=== PATIENT | male | born 1960 | race American Indian/Alaskan Native ===

== ENCOUNTER 2019-07-15 04:21 | Emergency (ER) | payer SELFPAY ==
[2019-07-15] MEDS ORDERED: ALBUTEROL 2.5 MG/3 ML NEBU IH ONE (04:34)
[2019-07-15] MEDS ORDERED: IPRATROPIUM 0.02% NEBU 2.5 ML IH ONE (04:34)
[2019-07-15] MEDS ORDERED: SODIUM CHLORIDE 0.9% 1000 ML 1,000 ML IV ONE (04:34)
--- NOTE | 2019-07-15 04:36 | Event Note ---
Date: 07/15/19 Medical screening examination: 59-year-old gentleman presenting with cough, mucus production, chest wall pain. Reported to nursing team recreational heroin use. EMS contacted for shortness of breath. Plan is to check basic laboratory studies, EKG, x-ray the chest, treat symptoms, reassess. The patient denied DVT and pulmonary embolism risk factors. Vital Signs 07/15/19 04:30 Temperature 97.8 F Pulse Rate 102 H Respiratory 24 Rate Blood Pressure 206/126 O2 Sat by Pulse 98 Oximetry
--- NOTE | 2019-07-15 05:03 | XRay Report ---
CHEST 1 VIEW INDICATION / CLINICAL INFORMATION: cough cp sob. COMPARISON: None available. FINDINGS: SUPPORT DEVICES: None. HEART / MEDIASTINUM: No significant abnormality. LUNGS / PLEURA: No significant pulmonary or pleural abnormality. No pneumothorax. ADDITIONAL FINDINGS: No significant additional findings. IMPRESSION: 1. No acute findings. Signer Name: Daiana Bojorquez MD Signed: 07/15/2019 4:59 AM Workstation Name: [id number]
[2019-07-15 05:11] LABS: Hematocrit 40.7 % (35.5-45.6); Hemoglobin 13.7 gm/dl (11.8-15.2); Mean Corpuscular HGB Conc 34 % (32-34); Mean Corpuscular Volume 88 fl (84-94); Platelet Count 252 K/mm3 (140-440); Red Blood Count 4.63 M/mm3 (3.65-5.03); Red Cell Distribution Width 14.4 % (13.2-15.2)
[2019-07-15 05:22] LABS: INR 0.98 (0.87-1.13)
[2019-07-15 05:45] LABS: Alanine Aminotransferase 16 units/L (7-56); Albumin 4.5 g/dL (3.9-5); BUN/Creatinine Ratio 13; Blood Urea Nitrogen 13 mg/dL (9-20); Calcium 9.3 mg/dL (8.4-10.2); Hemolysis Index 16
[2019-07-15] MEDS ORDERED: hydrALAZINE 20 MG/1 ML INJ IV ONE (05:47)
--- NOTE | 2019-07-15 07:13 | Emergency Department Report ---
ED General Adult HPI - General Chief complaint: Dyspnea/Respdistress Stated complaint: ANGEL/COUGH Time Seen by Provider: 07/15/19 07:00 Source: patient Mode of arrival: Stretcher Limitations: No Limitations - History of Present Illness Initial comments: She presents to the emergency department with a chief complaint of a cough shortness breath for the last couple of days. Patient has a history of COPD but does smoke cigarettes. Patient denies any chest pain, fever, normal pain. - Related Data Previous Rx's Medication Instructions Recorded Last Taken Type ALBUTEROL Inhaler (OR & NICU) 2 puff IH Q4HR PRN #1 inhalation 07/15/19 Unknown Rx [ProAir HFA Inhaler] Azithromycin [Zithromax Z-CHITO] 250 mg PO DAILY #6 tablet 07/15/19 Unknown Rx Benzonatate [Tessalon Perles] 100 mg PO Q8HR PRN #20 capsule 07/15/19 Unknown Rx guaiFENesin/CODEINE [Robitussin AC] 5 ml PO Q12HR PRN #180 oral.liqd 07/15/19 Unknown Rx predniSONE [Deltasone] 20 mg PO DAILY #15 tablet 07/15/19 Unknown Rx Allergies Allergy/AdvReac Type Severity Reaction Status Date / Time No Known Allergies Allergy Unverified 07/15/19 04:33 ED Review of Systems ROS: Stated complaint: ANGEL/COUGH Other details as noted in HPI Constitutional: denies: chills, fever Eyes: denies: eye pain, eye discharge, vision change ENT: denies: ear pain, throat pain Respiratory: cough, shortness of breath. denies: wheezing Cardiovascular: denies: chest pain, palpitations Endocrine: no symptoms reported Gastrointestinal: denies: abdominal pain, nausea, diarrhea Genitourinary: denies: urgency, dysuria Musculoskeletal: denies: back pain, joint swelling, arthralgia Skin: denies: rash, lesions Neurological: denies: headache, weakness, paresthesias Psychiatric: denies: anxiety, depression Hematological/Lymphatic: denies: easy bleeding, easy bruising ED Past Medical Hx - Past Medical History Previous Medical History?: No - Surgical History Past Surgical History?: No - Social History Smoking Status: Current Every Day Smoker Substance Use Type: Alcohol, Heroin - Medications Home Medications: Home Medications Medication Instructions Recorded Confirmed Last Taken Type ALBUTEROL Inhaler (OR & NICU) 2 puff IH Q4HR PRN #1 inhalation 07/15/19 Unknown Rx [ProAir HFA Inhaler] Azithromycin [Zithromax Z-CHITO] 250 mg PO DAILY #6 tablet 07/15/19 Unknown Rx Benzonatate [Tessalon Perles] 100 mg PO Q8HR PRN #20 capsule 07/15/19 Unknown Rx guaiFENesin/CODEINE [Robitussin AC] 5 ml PO Q12HR PRN #180 oral.liqd 07/15/19 Unknown Rx predniSONE [Deltasone] 20 mg PO DAILY #15 tablet 07/15/19 Unknown Rx ED Physical Exam - General Limitations: No Limitations General appearance: alert, in no apparent distress - Head Head exam: Present: atraumatic, normocephalic - Eye Eye exam: Present: normal appearance, PERRL, EOMI - ENT ENT exam: Present: mucous membranes moist - Neck Neck exam: Present: normal inspection - Respiratory Respiratory exam: Present: normal lung sounds bilaterally, wheezes (mild expiratory wheezing). Absent: respiratory distress - Cardiovascular Cardiovascular Exam: Present: regular rate, normal rhythm. Absent: systolic murmur, diastolic murmur, rubs, gallop - GI/Abdominal GI/Abdominal exam: Present: soft, normal bowel sounds. Absent: distended, tenderness - Rectal Rectal exam: Present: deferred - Extremities Exam Extremities exam: Present: normal inspection - Back Exam Back exam: Present: normal inspection - Neurological Exam Neurological exam: Present: alert, oriented X3, CN II-XII intact. Absent: motor sensory deficit - Psychiatric Psychiatric exam: Present: normal affect, normal mood - Skin Skin exam: Present: warm, dry, intact, normal color. Absent: rash ED Course Vital Signs 07/15/19 07/15/19 07/15/19 04:26 04:30 04:45 Temperature 97.8 F Pulse Rate 92 H 91 H 95 H Pulse Rate [ Bilateral] Respiratory 13 18 18 Rate Respiratory Rate [Bilateral ] Blood Pressure 206/126 194/124 O2 Sat by Pulse 96 95 Oximetry 07/15/19 07/15/19 07/15/19 04:52 05:00 05:15 Temperature Pulse Rate 80 79 Pulse Rate [ 90 Bilateral] Respiratory 16 15 Rate Respiratory 20 Rate [Bilateral ] Blood Pressure 154/105 149/97 O2 Sat by Pulse 98 98 Oximetry 07/15/19 07/15/19 07/15/19 05:30 05:45 06:00 Temperature Pulse Rate 90 96 H 75 Pulse Rate [ Bilateral] Respiratory 17 20 17 Rate Respiratory Rate [Bilateral ] Blood Pressure 151/91 155/95 153/87 O2 Sat by Pulse 99 98 100 Oximetry 07/15/19 07/15/19 07/15/19 06:15 06:30 06:45 Temperature Pulse Rate 66 70 88 Pulse Rate [ Bilateral] Respiratory 16 16 13 Rate Respiratory Rate [Bilateral ] Blood Pressure 141/87 147/85 160/104 O2 Sat by Pulse 100 100 95 Oximetry 07/15/19 07/15/19 07:00 07:05 Temperature Pulse Rate 83 83 Pulse Rate [ Bilateral] Respiratory 19 Rate Respiratory Rate [Bilateral ] Blood Pressure 155/100 155/100 O2 Sat by Pulse 92 Oximetry ED Medical Decision Making - Lab Data Result diagrams: 07/15/19 04:47 07/15/19 04:47 Lab Results 07/15/19 07/15/19 07/15/19 Range/Units 04:47 04:47 04:47 WBC 5.9 (4.5-11.0) K/mm3 RBC 4.63 (3.65-5.03) M/mm3 Hgb 13.7 (11.8-15.2) gm/dl Hct 40.7 (35.5-45.6) % MCV 88 (84-94) fl MCH 30 (28-32) pg MCHC 34 (32-34) % RDW 14.4 (13.2-15.2) % Plt Count 252 (140-440) K/mm3 PT 12.9 (12.2-14.9) Sec. INR 0.98 (0.87-1.13) Sodium 136 L (137-145) mmol/L Potassium 4.2 (3.6-5.0) mmol/L Chloride 98.6 (98-107) mmol/L Carbon Dioxide 22 (22-30) mmol/L Anion Gap 20 mmol/L BUN 13 (9-20) mg/dL Creatinine 1.0 (0.8-1.5) mg/dL Estimated GFR > 60 ml/min BUN/Creatinine Ratio 13 % Glucose 109 H (75-100) mg/dL Calcium 9.3 (8.4-10.2) mg/dL Magnesium 1.90 (1.7-2.3) mg/dL Total Bilirubin 0.60 (0.1-1.2) mg/dL AST 17 (5-40) units/L ALT 16 (7-56) units/L Alkaline Phosphatase 62 (35-129) units/L Total Creatine Kinase 111 (55-170) units/L Troponin T < 0.010 (0.00-0.029) ng/mL Total Protein 7.9 (6.3-8.2) g/dL Albumin 4.5 (3.9-5) g/dL Albumin/Globulin Ratio 1.3 % Salicylates (2.8-20.0) mg/dL Acetaminophen (10.0-30.0) ug/mL Plasma/Serum Alcohol (0-0.07) % 07/15/19 07/15/19 07/15/19 Range/Units 04:47 04:47 04:47 WBC (4.5-11.0) K/mm3 RBC (3.65-5.03) M/mm3 Hgb (11.8-15.2) gm/dl Hct (35.5-45.6) % MCV (84-94) fl MCH (28-32) pg MCHC (32-34) % RDW (13.2-15.2) % Plt Count (140-440) K/mm3 PT (12.2-14.9) Sec. INR (0.87-1.13) Sodium (137-145) mmol/L Potassium (3.6-5.0) mmol/L Chloride (98-107) mmol/L Carbon Dioxide (22-30) mmol/L Anion Gap mmol/L BUN (9-20) mg/dL Creatinine (0.8-1.5) mg/dL Estimated GFR ml/min BUN/Creatinine Ratio % Glucose (75-100) mg/dL Calcium (8.4-10.2) mg/dL Magnesium (1.7-2.3) mg/dL Total Bilirubin (0.1-1.2) mg/dL AST (5-40) units/L ALT (7-56) units/L Alkaline Phosphatase (35-129) units/L Total Creatine Kinase (55-170) units/L Troponin T (0.00-0.029) ng/mL Total Protein (6.3-8.2) g/dL Albumin (3.9-5) g/dL Albumin/Globulin Ratio % Salicylates < 0.3 L (2.8-20.0) mg/dL Acetaminophen < 5.0 L (10.0-30.0) ug/mL Plasma/Serum Alcohol < 0.01 (0-0.07) % - Radiology Data Radiology results: report reviewed - Medical Decision Making The patient states his symptoms improved after the breathing treatment Critical care attestation.: If time is entered above; I have spent that time in minutes in the direct care of this critically ill patient, excluding procedure time. ED Disposition Clinical Impression: Bronchitis Disposition: DC- TO HOME OR SELFCARE Is pt being admited?: No Does the pt Need Aspirin: No Condition: Stable Instructions: Acute Bronchitis (ED) Additional Instructions: return if worse Referrals: PRIMARY CARE, [Primary Care Provider] - 3-5 Days [facility] [Provider Group] - 3-5 Days [facility] [Provider Group] - 3-5 Days Time of Disposition: 07:09
[2019-07-15 07:19] VITALS: BP 162/96
== END 2019-07-15 07:22 | disposition home or self-care (01) ==
LOC: ED 04:21
DX: J40 Bronchitis, not specified as acute or chronic (principal); F17.200 Nicotine dependence, unspecified, uncomplicated; Z79.899 Other long term (current) drug therapy
CPT/HCPCS: 36415; 71045; 80053; 82550; 83735; 84484; 85027; 85610; 94640; 96360; 99285; J7030; 80320; 94644; G0480

== ENCOUNTER 2019-08-27 03:59 | Emergency (ER) | payer SELFPAY ==
[2019-08-27] MEDS ORDERED: IPRATROPIUM/ALBUTEROL SULFATE 3 ML AMPUL.NEB IH ONE (06:50)
--- NOTE | 2019-08-27 08:30 | XRay Report ---
CHEST 2 VIEWS INDICATION: shortness of breath, cough. COMPARISON: 07/15/2019 FINDINGS: Support devices: None. Heart: Within normal limits. Lungs/pleura: No acute air space or interstitial disease. No pneumothorax. The lungs appear hyperinf lated. Additional findings: None. IMPRESSION: No acute findings. Hyperinflated lungs suggesting underlying emphysematous changes. Signer Name: Matt Coombs Jr, MD Signed: 08/27/2019 8:26 AM Workstation Name: [id number]
--- NOTE | 2019-08-27 09:20 | Emergency Department Report ---
ED Shortness of Breath HPI - General Chief Complaint: Dyspnea/Respdistress Stated Complaint: ANGEL Time Seen by Provider: 08/27/19 08:57 Source: patient Mode of arrival: Ambulatory Limitations: No Limitations - History of Present Illness Initial Comments: Mr. Lester is a 59 yo male with hx of tobacco abuse who presents with cough, sputum production and shortness of breath. Seen last month for similar symptoms. Was uanble to fill prescriptoins provided. Does not have a primary physician, Symptoms improved with bronchodilator nebulizer treatment. MD Complaint: shortness of breath, cough -: Gradual, days(s) (2) Severity: moderate Consistency: now resolved Improves With: bronchodilators Known History Of: other (40 pack year tobacco hx) - Related Data Previous Rx's Medication Instructions Recorded Last Taken Type ALBUTEROL Inhaler (OR & NICU) 2 puff IH Q4HR PRN #1 inhalation 07/15/19 Unknown Rx [ProAir HFA Inhaler] Azithromycin [Zithromax Z-CHITO] 250 mg PO DAILY #6 tablet 07/15/19 Unknown Rx Benzonatate [Tessalon Perles] 100 mg PO Q8HR PRN #20 capsule 07/15/19 Unknown Rx guaiFENesin/CODEINE [Robitussin AC] 5 ml PO Q12HR PRN #180 oral.liqd 07/15/19 Unknown Rx predniSONE [Deltasone] 20 mg PO DAILY #15 tablet 07/15/19 Unknown Rx ALBUTEROL Inhaler (OR & NICU) 2 puff IH QID PRN #8.5 gram 08/27/19 Unknown Rx [ProAir HFA Inhaler] DOXYCYCLINE Hyclate [Vibramycin 100 mg PO BID 7 Days #14 capsule 08/27/19 Unknown Rx CAP] predniSONE [Deltasone] 3 tab PO QDAY 3 Days #9 tab 08/27/19 Unknown Rx Allergies Allergy/AdvReac Type Severity Reaction Status Date / Time No Known Allergies Allergy Unverified 07/15/19 04:33 ED Review of Systems ROS: Stated complaint: ANGEL Other details as noted in HPI Comment: All other systems reviewed and negative Constitutional: denies: fever, malaise ENT: congestion Respiratory: cough, shortness of breath, wheezing Cardiovascular: denies: chest pain ED Past Medical Hx - Past Medical History Previous Medical History?: Yes Hx COPD: Yes - Surgical History Past Surgical History?: No Additional Surgical History: right breast tissue removed 1990 - Social History Smoking Status: Current Every Day Smoker Substance Use Type: None - Medications Home Medications: Home Medications Medication Instructions Recorded Confirmed Last Taken Type ALBUTEROL Inhaler (OR & NICU) 2 puff IH Q4HR PRN #1 inhalation 07/15/19 Unknown Rx [ProAir HFA Inhaler] Azithromycin [Zithromax Z-CHITO] 250 mg PO DAILY #6 tablet 07/15/19 Unknown Rx Benzonatate [Tessalon Perles] 100 mg PO Q8HR PRN #20 capsule 07/15/19 Unknown Rx guaiFENesin/CODEINE [Robitussin AC] 5 ml PO Q12HR PRN #180 oral.liqd 07/15/19 Unknown Rx predniSONE [Deltasone] 20 mg PO DAILY #15 tablet 07/15/19 Unknown Rx ALBUTEROL Inhaler (OR & NICU) 2 puff IH QID PRN #8.5 gram 08/27/19 Unknown Rx [ProAir HFA Inhaler] DOXYCYCLINE Hyclate [Vibramycin 100 mg PO BID 7 Days #14 capsule 08/27/19 Unknown Rx CAP] predniSONE [Deltasone] 3 tab PO QDAY 3 Days #9 tab 08/27/19 Unknown Rx ED Physical Exam - General Limitations: No Limitations General appearance: alert, in no apparent distress, other (speaking full word sentences with infrequent cough, ambulates without difficulty) - Head Head exam: Present: atraumatic, normocephalic - Eye Eye exam: Present: normal appearance - ENT ENT exam: Present: mucous membranes moist - Neck Neck exam: Present: normal inspection, full ROM - Respiratory Respiratory exam: Present: normal lung sounds bilaterally. Absent: respiratory distress, wheezes, rales, rhonchi, chest wall tenderness, accessory muscle use, decreased breath sounds, prolonged expiratory - Cardiovascular Cardiovascular Exam: Present: regular rate, normal rhythm, normal heart sounds. Absent: systolic murmur, diastolic murmur, rubs, gallop - GI/Abdominal GI/Abdominal exam: Present: soft, normal bowel sounds. Absent: distended, tenderness, guarding, rebound - Rectal Rectal exam: Present: deferred - Extremities Exam Extremities exam: Present: normal inspection - Neurological Exam Neurological exam: Present: alert, oriented X3 - Psychiatric Psychiatric exam: Present: normal affect, normal mood - Skin Skin exam: Present: warm, dry, intact, normal color. Absent: rash ED Course Vital Signs 08/27/19 08/27/19 04:31 05:02 Temperature 98.4 F 98.4 F Pulse Rate 89 88 Respiratory 18 18 Rate Blood Pressure 134/86 134/86 O2 Sat by Pulse 94 94 Oximetry ED Medical Decision Making - Radiology Data Radiology results: report reviewed chest radiograph reveals emphysematous changes with hyperinflation according to radiology report - Medical Decision Making with hx of tobacco abuse and CXR findings I suspect COPD as a new diagnosis for patient although it appears to have been previously documentation smoking cessation recommended Rx: albuterol mdi, doxycycline, prednisone Critical care attestation.: If time is entered above; I have spent that time in minutes in the direct care of this critically ill patient, excluding procedure time. ED Disposition Clinical Impression: COPD (chronic obstructive pulmonary disease), Acute bronchitis with COPD Disposition: TO HOME OR SELFCARE Is pt being admited?: No Does the pt Need Aspirin: No Condition: Stable Additional Instructions: Your x-ray shows lung damage from smoking. Please stop smoking immediately. Prescriptions: predniSONE [Deltasone] 3 tab PO QDAY 3 Days #9 tab ALBUTEROL Inhaler (OR & NICU) [ProAir HFA Inhaler] 2 puff IH QID PRN #8.5 gram PRN Reason: Shortness Of Breath DOXYCYCLINE Hyclate [Vibramycin CAP] 100 mg PO BID 7 Days #14 capsule Referrals: ANDRÉS HUSSEIN MD [Staff Physician] - 3-5 Days Forms: Work/School Release Form(ED)
[2019-08-27] MEDS ORDERED: predniSONE 20 MG TAB PO ONE (09:23)
[2019-08-27] MEDS ORDERED: DOXYCYCLINE 100 MG CAPSULE PO ONE (09:23)
[2019-08-27 09:41] VITALS: BP 128/78
== END 2019-08-27 09:40 | disposition home or self-care (01) ==
LOC: ED 03:59
DX: J44.0 Chronic obstructive pulmonary disease with (acute) lower respiratory infection (principal); F17.200 Nicotine dependence, unspecified, uncomplicated
CPT/HCPCS: 71046; 94640; 99284; J7512; 94644

== ENCOUNTER 2019-10-13 14:41 | Emergency (ER) | payer SELFPAY ==
[2019-10-13] MEDS ORDERED: IPRATROPIUM/ALBUTEROL SULFATE 3 ML AMPUL.NEB IH ONE (17:25)
[2019-10-13] MEDS ORDERED: dexAMETHasone 20 MG/5 ML VIAL IM ONE (17:25)
--- NOTE | 2019-10-13 17:25 | Event Note ---
ED Screening Note ED Screening Note: hx of chronic bronchitis began feeling SOB that began earlier today wheezing ran out of his albuterol inhaler + dry cough no fever no rhinorrhea no n/v/d no other pmhx no allergies to meds +smoker, 1/2 ppd +marijuana mild expiratory wheeze no respiratory distress This initial assessment/diagnostic orders/clinical plan/treatment(s) is/are subject to change based on patients health status, clinical progression and re- assessment by fellow clinical providers in the ED. Further treatment and workup at subsequent clinical providers discretion. Patient/guardian urged not to elope from the ED as their condition may be serious if not clinically assessed and managed. Initial orders include: yamileo neb
--- NOTE | 2019-10-13 18:36 | Emergency Department Report ---
ED Shortness of Breath HPI - General Chief Complaint: Dyspnea/Respdistress Stated Complaint: SOB Time Seen by Provider: 10/13/19 17:21 Source: patient Mode of arrival: Ambulatory Limitations: No Limitations - History of Present Illness Initial Comments: hx of chronic bronchitis began feeling SOB that began earlier today has associated wheezing ran out of his albuterol inhaler (+) dry cough no fever no rhinorrhea no n/v/d no cp no productive cough no other pmhx no allergies to meds (+)smoker, 1/2 ppd +marijuana use - Related Data Previous Rx's Medication Instructions Recorded Last Taken Type Albuterol INH(or & Nicu Only) 2 puff IH Q4HR PRN #1 inhalation 07/15/19 Unknown Rx [ProAir HFA Inhaler] Azithromycin [Zithromax Z-CHITO] 250 mg PO DAILY #6 tablet 07/15/19 Unknown Rx Benzonatate [Tessalon Perles] 100 mg PO Q8HR PRN #20 capsule 07/15/19 Unknown Rx guaiFENesin/CODEINE [Robitussin AC] 5 ml PO Q12HR PRN #180 oral.liqd 07/15/19 Unknown Rx predniSONE [Deltasone] 20 mg PO DAILY #15 tablet 07/15/19 Unknown Rx Albuterol INH(or & Nicu Only) 2 puff IH QID PRN #8.5 gram 08/27/19 Unknown Rx [ProAir HFA Inhaler] DOXYCYCLINE Hyclate [Vibramycin 100 mg PO BID 7 Days #14 capsule 08/27/19 Unknown Rx CAP] predniSONE [Deltasone] 3 tab PO QDAY 3 Days #9 tab 08/27/19 Unknown Rx Albuterol INH(or & Nicu Only) 2 puff IH QID PRN #1 inhalation 10/13/19 Unknown Rx [ProAir HFA Inhaler] Prednisone [predniSONE 10 mg 10 mg PO .TAPER #1 tab.ds.pk 10/13/19 Unknown Rx (6-Day Pack, 21 Tabs)] Allergies Allergy/AdvReac Type Severity Reaction Status Date / Time No Known Allergies Allergy Unverified 07/15/19 04:33 ED Review of Systems ROS: Stated complaint: SOB Other details as noted in HPI Comment: All other systems reviewed and negative ED Past Medical Hx - Past Medical History Previous Medical History?: Yes Hx COPD: Yes - Surgical History Past Surgical History?: Yes Additional Surgical History: right breast tissue removed 1990 - Social History Smoking Status: Current Every Day Smoker Substance Use Type: Alcohol, Heroin, Marijuana - Medications Home Medications: Home Medications Medication Instructions Recorded Confirmed Last Taken Type Albuterol INH(or & Nicu Only) 2 puff IH Q4HR PRN #1 inhalation 07/15/19 Unknown Rx [ProAir HFA Inhaler] Azithromycin [Zithromax Z-CHITO] 250 mg PO DAILY #6 tablet 07/15/19 Unknown Rx Benzonatate [Tessalon Perles] 100 mg PO Q8HR PRN #20 capsule 07/15/19 Unknown Rx guaiFENesin/CODEINE [Robitussin AC] 5 ml PO Q12HR PRN #180 oral.liqd 07/15/19 Unknown Rx predniSONE [Deltasone] 20 mg PO DAILY #15 tablet 07/15/19 Unknown Rx Albuterol INH(or & Nicu Only) 2 puff IH QID PRN #8.5 gram 08/27/19 Unknown Rx [ProAir HFA Inhaler] DOXYCYCLINE Hyclate [Vibramycin 100 mg PO BID 7 Days #14 capsule 08/27/19 Unknown Rx CAP] predniSONE [Deltasone] 3 tab PO QDAY 3 Days #9 tab 08/27/19 Unknown Rx Albuterol INH(or & Nicu Only) 2 puff IH QID PRN #1 inhalation 10/13/19 Unknown Rx [ProAir HFA Inhaler] Prednisone [predniSONE 10 mg 10 mg PO .TAPER #1 tab.ds.pk 10/13/19 Unknown Rx (6-Day Pack, 21 Tabs)] ED Physical Exam - General Limitations: No Limitations General appearance: alert, in no apparent distress - Head Head exam: Present: atraumatic, normocephalic - Eye Eye exam: Present: normal appearance - ENT ENT exam: Present: mucous membranes moist - Respiratory Respiratory exam: Present: wheezes (mild expiratory). Absent: respiratory distress, rales, rhonchi, stridor, chest wall tenderness, accessory muscle use, decreased breath sounds, prolonged expiratory - Cardiovascular Cardiovascular Exam: Present: regular rate, normal rhythm, normal heart sounds. Absent: systolic murmur, diastolic murmur, rubs, gallop - Neurological Exam Neurological exam: Present: alert, oriented X3 - Psychiatric Psychiatric exam: Present: normal affect, normal mood - Skin Skin exam: Present: warm, dry, intact ED Course Vital Signs 10/13/19 10/13/19 17:22 18:54 Temperature 98.3 F Pulse Rate 92 H 86 Respiratory 18 16 Rate Blood Pressure 143/94 Blood Pressure 140/90 [Left] O2 Sat by Pulse 95 97 Oximetry - Reevaluation(s) Reevaluation #1: 10/13/19 18:36 s/p neb tx, breath sounds are completely clear, good air movement ED Medical Decision Making - Medical Decision Making hx of chronic bronchitis began feeling SOB that began earlier today has associated wheezing ran out of his albuterol inhaler (+) dry cough no fever no rhinorrhea no n/v/d no cp no productive cough no other pmhx no allergies to meds (+)smoker, 1/2 ppd +marijuana use vss on exam: mild expiratory, no respiratory distress, no accessory muscle use pt has no fever, no productive cough, no rhochi or rales, no need for emergent imaging at this time, low concern for pna or acute bronchitis Patient given DuoNeb and steroid injection, breath sounds significantly improved, wheezing has resolved discussed smoking cessation. advised pt to please take medication as prescribed. stop smoking. follow up with a primary care doctor in the next 2-3 days. return to the emergency room for any new or worsening symptoms. Critical care attestation.: If time is entered above; I have spent that time in minutes in the direct care of this critically ill patient, excluding procedure time. ED Disposition Clinical Impression: Tobacco abuse COPD (chronic obstructive pulmonary disease) Qualifiers: COPD type: unspecified COPD Qualified Code(s): J44.9 - Chronic obstructive pulmonary disease, unspecified Disposition: DC-01 TO HOME OR SELFCARE Is pt being admited?: No Does the pt Need Aspirin: No Condition: Stable Instructions: How to Stop Smoking (ED), Chronic Obstructive Pulmonary Disease ( ED) Additional Instructions: please take medication as prescribed. stop smoking. follow up with a primary care doctor in the next 2-3 days. return to the emergency room for any new or worsening symptoms. Prescriptions: Prednisone [predniSONE 10 mg (6-Day Pack, 21 Tabs)] 10 mg PO .TAPER #1 tab.ds.pk Albuterol INH(or & Nicu Only) [ProAir HFA Inhaler] 2 puff IH QID PRN #1 inhalation PRN Reason: Shortness Of Breath Referrals: ANDRÉS HUSSEIN MD [Staff Physician] - 2-3 Days [facility] [Outside] - 2-3 Days [facility] [Outside] - 2-3 Days Time of Disposition: 18:37 Print Language: RUSSIAN
[2019-10-13 19:03] VITALS: BP 140/90
== END 2019-10-13 18:54 | disposition home or self-care (01) ==
LOC: ED 14:41
DX: J44.9 Chronic obstructive pulmonary disease, unspecified (principal); F17.200 Nicotine dependence, unspecified, uncomplicated; F12.10 Cannabis abuse, uncomplicated; Z79.899 Other long term (current) drug therapy
CPT/HCPCS: 93005; 93010; 94640; 96372; 99282; J1100

== ENCOUNTER 2020-09-02 11:24 | Emergency (ER) | payer SELFPAY ==
[2020-09-02 11:32] VITALS: BP 126/92
== END 2020-09-02 11:58 | disposition left against medical advice (07) ==
LOC: ED 11:24
DX: R11.2 Nausea with vomiting, unspecified (principal); Z53.21 Procedure and treatment not carried out due to patient leaving prior to being seen by health care provider

== ENCOUNTER 2020-12-10 21:20 | Emergency (ER) | payer SELFPAY ==
[2020-12-10] MEDS ORDERED: predniSONE 20 MG TAB PO ONE (22:49)
[2020-12-10] MEDS ORDERED: IBUPROFEN 800 MG TAB PO ONE (22:49)
[2020-12-10] MEDS ORDERED: IPRATROPIUM/ALBUTEROL SULFATE 3 ML AMPUL.NEB IH ONE (22:59)
[2020-12-10] MEDS ORDERED: IPRATROPIUM/ALBUTEROL SULFATE 3 ML AMPUL.NEB IH STA (22:59)
--- NOTE | 2020-12-10 23:09 | Emergency Department Report ---
ED General Adult HPI - General Chief complaint: Upper Respiratory Infection Stated complaint: ANGEL/COUGHING BLOOD Time Seen by Provider: 12/10/20 22:33 Source: patient Mode of arrival: Ambulatory Limitations: No Limitations - History of Present Illness Initial comments: Patient is a 60-year-old -Beninese male with history of COPD who presents with shortness of breath cough productive yellow thick with sinus pain and pressure for the past week. Patient states he is out of prednisone and albuterol. Symptoms are rated at 4/10 with some chest pressure. Patient also endorses history of hypertension not sure what medication he is prescribed for treatment of same. States he takes it daily however did not take it today. Patient states symptoms are exacerbated by activity and environmental exposure. Symptoms are relieved by nothing tried. Patient denies suspicious contact there is been no recent travel. Patient has not had Covid vaccines. pt denies fever or chills. Severity scale (0 -10): 3 - Related Data Previous Rx's Medication Instructions Recorded Last Taken Type Albuterol Mdi (or & Nicu Only) 2 puff IH Q4HR PRN #1 inhalation 07/15/19 Unknown Rx [ProAir HFA Inhaler] Azithromycin [Zithromax Z-CHITO] 250 mg PO DAILY #6 tablet 07/15/19 Unknown Rx Benzonatate [Tessalon Perles] 100 mg PO Q8HR PRN #20 capsule 07/15/19 Unknown Rx guaiFENesin/CODEINE [Robitussin AC] 5 ml PO Q12HR PRN #180 oral.liqd 07/15/19 Unknown Rx predniSONE [Deltasone] 20 mg PO DAILY #15 tablet 07/15/19 Unknown Rx Albuterol Mdi (or & Nicu Only) 2 puff IH QID PRN #8.5 gram 08/27/19 Unknown Rx [ProAir HFA Inhaler] DOXYCYCLINE Hyclate [Vibramycin 100 mg PO BID 7 Days #14 capsule 08/27/19 Unknown Rx CAP] predniSONE [Deltasone] 3 tab PO QDAY 3 Days #9 tab 08/27/19 Unknown Rx Albuterol Mdi (or & Nicu Only) 2 puff IH QID PRN #1 inhalation 10/13/19 Unknown Rx [ProAir HFA Inhaler] Prednisone [predniSONE 10 mg 10 mg PO .TAPER #1 tab.ds.pk 10/13/19 Unknown Rx (6-Day Pack, 21 Tabs)] Albuterol Mdi (or & Nicu Only) 2 puff IH QID PRN #8.5 gram 12/11/20 Unknown Rx [ProAir HFA Inhaler] Azithromycin 500 mg PO DAILY 5 Days #5 tablet 12/11/20 Unknown Rx Codeine Phosphate/Guaifenesin 5 ml PO Q6H PRN #120 ml 12/11/20 Unknown Rx [Guaifenesin-Codeine Syrup] predniSONE [Deltasone] 40 mg PO QDAY 5 Days #10 tab 12/11/20 Unknown Rx Allergies Allergy/AdvReac Type Severity Reaction Status Date / Time No Known Allergies Allergy Verified 09/02/20 11:26 ED Review of Systems ROS: Stated complaint: ANGEL/COUGHING BLOOD Other details as noted in HPI Constitutional: denies: chills, fever Eyes: denies: eye pain, eye discharge, vision change ENT: throat pain, congestion Respiratory: cough, shortness of breath, wheezing Cardiovascular: chest pain (chest pressure ). denies: palpitations Endocrine: no symptoms reported Gastrointestinal: denies: abdominal pain, nausea, vomiting, diarrhea Genitourinary: denies: urgency, dysuria Musculoskeletal: denies: back pain, joint swelling, arthralgia Skin: denies: rash, lesions Neurological: denies: headache, weakness, numbness, paresthesias, confusion, vertigo Psychiatric: denies: anxiety, depression Hematological/Lymphatic: denies: easy bleeding, easy bruising ED Past Medical Hx - Past Medical History Previous Medical History?: Yes Hx COPD: Yes Additional medical history: Bronchitis - Surgical History Past Surgical History?: Yes Additional Surgical History: right breast tissue removed 1990 - Social History Smoking Status: Unknown if ever smoked Substance Use Type: Methamphetamines - Medications Home Medications: Home Medications Medication Instructions Recorded Confirmed Last Taken Type Albuterol Mdi (or & Nicu Only) 2 puff IH Q4HR PRN #1 inhalation 07/15/19 Unknown Rx [ProAir HFA Inhaler] Azithromycin [Zithromax Z-CHITO] 250 mg PO DAILY #6 tablet 07/15/19 Unknown Rx Benzonatate [Tessalon Perles] 100 mg PO Q8HR PRN #20 capsule 07/15/19 Unknown Rx guaiFENesin/CODEINE [Robitussin AC] 5 ml PO Q12HR PRN #180 oral.liqd 07/15/19 Unknown Rx predniSONE [Deltasone] 20 mg PO DAILY #15 tablet 07/15/19 Unknown Rx Albuterol Mdi (or & Nicu Only) 2 puff IH QID PRN #8.5 gram 08/27/19 Unknown Rx [ProAir HFA Inhaler] DOXYCYCLINE Hyclate [Vibramycin 100 mg PO BID 7 Days #14 capsule 08/27/19 Unknown Rx CAP] predniSONE [Deltasone] 3 tab PO QDAY 3 Days #9 tab 08/27/19 Unknown Rx Albuterol Mdi (or & Nicu Only) 2 puff IH QID PRN #1 inhalation 10/13/19 Unknown Rx [ProAir HFA Inhaler] Prednisone [predniSONE 10 mg 10 mg PO .TAPER #1 tab.ds.pk 10/13/19 Unknown Rx (6-Day Pack, 21 Tabs)] Albuterol Mdi (or & Nicu Only) 2 puff IH QID PRN #8.5 gram 12/11/20 Unknown Rx [ProAir HFA Inhaler] Azithromycin 500 mg PO DAILY 5 Days #5 tablet 12/11/20 Unknown Rx Codeine Phosphate/Guaifenesin 5 ml PO Q6H PRN #120 ml 12/11/20 Unknown Rx [Guaifenesin-Codeine Syrup] predniSONE [Deltasone] 40 mg PO QDAY 5 Days #10 tab 12/11/20 Unknown Rx ED Physical Exam - General Limitations: No Limitations General appearance: alert, in no apparent distress - Head Head exam: Present: atraumatic, normocephalic - Eye Eye exam: Present: normal appearance, EOMI Pupils: Present: normal accommodation - ENT ENT exam: Present: mucous membranes moist - Neck Neck exam: Present: normal inspection, full ROM. Absent: tenderness - Respiratory Respiratory exam: Present: wheezes (exp wheezing bilat upper anterior lobes). Absent: rales, rhonchi, stridor, accessory muscle use, prolonged expiratory - Cardiovascular Cardiovascular Exam: Present: regular rate, normal rhythm, normal heart sounds. Absent: systolic murmur, diastolic murmur, rubs, gallop - GI/Abdominal GI/Abdominal exam: Present: soft, normal bowel sounds. Absent: distended, tenderness - Rectal Rectal exam: Present: deferred - Extremities Exam Extremities exam: Present: normal inspection, full ROM, normal capillary refill. Absent: tenderness, pedal edema - Back Exam Back exam: Present: normal inspection, full ROM. Absent: tenderness, CVA tenderness (R), CVA tenderness (L) - Neurological Exam Neurological exam: Present: alert, oriented X3, CN II-XII intact, normal gait - Psychiatric Psychiatric exam: Present: normal affect, normal mood - Skin Skin exam: Present: warm, dry, intact, normal color. Absent: rash ED Course Vital Signs 12/10/20 12/11/20 22:16 00:17 Temperature 97.5 F L Pulse Rate 65 64 Respiratory 20 Rate Blood Pressure 188/102 Blood Pressure 166/109 [Right] O2 Sat by Pulse 95 Oximetry ED Medical Decision Making - Lab Data Result diagrams: 12/10/20 23:09 12/10/20 23:09 - Radiology Data Radiology results: report reviewed, image reviewed Ordering Physician: NICOLAS LUZ NP Date of Service: 12/10/20 Procedure(s): XR chest 1V ap Accession Number(s): [id number] cc: NICOLAS LUZ NP Fluoro Time In Minutes: CHEST 1 VIEW 12/10/2020 10:25 PM INDICATION / CLINICAL INFORMATION: chest pain. COMPARISON: 08/27/2019 FINDINGS: SUPPORT DEVICES: None. HEART / MEDIASTINUM: No significant abnormality. LUNGS / PLEURA: No significant pulmonary or pleural abnormality. No pneumothorax. ADDITIONAL FINDINGS: No significant additional findings. IMPRESSION: 1. No acute findings. Signer Name: Peng Wakefield MD Signed: 12/10/2020 11:36 PM Workstation Name: [id number] Transcribed By: SS Dictated By: Peng Wakefield MD Electronically Authenticated By: Peng Wakefield MD Signed Date/Time: 12/10/202335 DD/ 35 TD/TT: - Medical Decision Making Chest x-ray no infiltrates no opacities. Symptoms are improved with medication given in ED. Patient is alert oriented x3. Patient has ambulated in ED from room to bathroom and back to room without increased shortness of breath or wheezing. Patient will be DC'd home in stable condition at this time with pre scriptions. Patient will follow up with PCP in 2 to 3 days. and return to emergency if symptoms worsen., Critical care attestation.: If time is entered above; I have spent that time in minutes in the direct care of this critically ill patient, excluding procedure time. ED Disposition Clinical Impression: COPD (chronic obstructive pulmonary disease) Qualifiers: COPD type: unspecified COPD Qualified Code(s): J44.9 - Chronic obstructive pulmonary disease, unspecified Disposition: - TO HOME OR SELFCARE Is pt being admited?: No Does the pt Need Aspirin: No Condition: Stable Instructions: Chronic Obstructive Pulmonary Disease (ED), Chronic Obstructive Pulmonary Disease Exacerbation, U[place]u-eo-Owdo Prescriptions: Azithromycin 500 mg PO DAILY 5 Days #5 tablet predniSONE [Deltasone] 40 mg PO QDAY 5 Days #10 tab Codeine Phosphate/Guaifenesin [Guaifenesin-Codeine Syrup] 5 ml PO Q6H PRN #120 ml PRN Reason: Cough Albuterol Mdi (or & Nicu Only) [ProAir HFA Inhaler] 2 puff IH QID PRN #8.5 gram PRN Reason: Shortness Of Breath Referrals: LADAN SHAW MD [Staff Physician] - 3-5 Days Forms: Work/School Release Form(ED) Time of Disposition: 01:07
--- NOTE | 2020-12-10 23:41 | XRay Report ---
CHEST 1 VIEW 12/10/2020 10:25 PM INDICATION / CLINICAL INFORMATION: chest pain. COMPARISON: 08/27/2019 FINDINGS: SUPPORT DEVICES: None. HEART / MEDIASTINUM: No significant abnormality. LUNGS / PLEURA: No significant pulmonary or pleural abnormality. No pneumothorax. ADDITIONAL FINDINGS: No significant additional findings. IMPRESSION: 1. No acute findings. Signer Name: Peng Wakefield MD Signed: 12/10/2020 11:36 PM Workstation Name: [id number]
[2020-12-10 23:45] LABS: Alanine Aminotransferase 18 units/L (7-56); Albumin 4.5 g/dL (3.9-5); BUN/Creatinine Ratio 13; Blood Urea Nitrogen 13 mg/dL (9-20); Calcium 8.9 mg/dL (8.4-10.2); Hemolysis Index 4
[2020-12-10 23:47] LABS: Hematocrit 42.3 % (35.5-45.6); Hemoglobin 14.1 gm/dl (11.8-15.2); Mean Corpuscular HGB Conc 33 % (32-34); Mean Corpuscular Volume 89 fl (84-94); Platelet Count 261 K/mm3 (140-440); Red Blood Count 4.77 M/mm3 (3.65-5.03); Red Cell Distribution Width 13.8 % (13.2-15.2)
[2020-12-10] MEDS ORDERED: ALBUTEROL 2.5 MG/3 ML NEBU IH ONE (23:57)
[2020-12-10] MEDS ORDERED: hydrALAZINE 25 MG TAB PO ONE (23:58)
[2020-12-11 01:28] VITALS: BP 159/86
[2020-12-11 02:10] LABS: Platelet Estimate Consistent w Auto; Total Cells Counted 100
[2020-12-11] MEDS ORDERED: IPRATROPIUM/ALBUTEROL SULFATE 3 ML AMPUL.NEB IH SCH (08:00)
== END 2020-12-11 01:15 | disposition home or self-care (01) ==
LOC: ED 21:20
DX: J44.1 Chronic obstructive pulmonary disease with (acute) exacerbation (principal); Z79.899 Other long term (current) drug therapy
CPT/HCPCS: 36415; 71045; 80053; 84484; 85007; 85025; 94640; 99284; J7512

== ENCOUNTER 2021-07-20 12:45 | Inpatient (IN) | payer SELFPAY ==
[2021-07-20] MEDS ORDERED: IPRATROPIUM 0.02% NEBU 2.5 ML IH ONE (13:33)
[2021-07-20] MEDS ORDERED: ALBUTEROL 2.5 MG/3 ML NEBU IH ONE (13:33)
[2021-07-20] MEDS ORDERED: methylPREDNISolone Sod Succinate 125 MG/2 ML INJ IV ONE (13:35)
[2021-07-20] MEDS ORDERED: MAGNESIUM SULFATE 2 GM/50 ML BAG IV ONE (13:35)
--- NOTE | 2021-07-20 13:45 | Emergency Department Report ---
HPI - General Chief Complaint: Dyspnea/Respdistress Time Seen by Provider: 07/20/21 13:24 - HPI HPI: Room 37 The patient is a 61-year-old male present with a chief complaint of shortness of breath. Patient has a history of COPD and states he is not on home O2. Patient states for the past 2 weeks he has had worsening shortness of breath and occasional cough productive of green sputum. Patient denies history of fever nausea or vomiting. Patient states he has not been vaccinated against Covid. Patient states his MDI helps with the shortness of breath. Yesterday the patient states he developed dull intermittent substernal chest pain. Patient currently gives his chest pain a score of 6/10. ED Past Medical Hx - Past Medical History Hx Hypertension: Yes Hx COPD: Yes (No home O2) Additional medical history: Bronchitis - Surgical History Additional Surgical History: right breast tissue removed 1990 - Family History Family history: no significant - Social History Smoking Status: Current Every Day Smoker (1/2 pack/day) Substance Use Type: Alcohol (Occasional), Heroin (Nasally. Patient denies IVDA) - Medications Home Medications: Home Medications Medication Instructions Recorded Confirmed Last Taken Type Albuterol Mdi (or & Nicu Only) 2 puff IH Q4HR PRN #1 inhalation 07/15/19 Unknown Rx [ProAir HFA Inhaler] Azithromycin [Zithromax Z-CHITO] 250 mg PO DAILY #6 tablet 07/15/19 Unknown Rx Benzonatate [Tessalon Perles] 100 mg PO Q8HR PRN #20 capsule 07/15/19 Unknown Rx guaiFENesin/CODEINE [Robitussin AC] 5 ml PO Q12HR PRN #180 oral.liqd 07/15/19 Unknown Rx predniSONE [Deltasone] 20 mg PO DAILY #15 tablet 07/15/19 Unknown Rx Albuterol Mdi (or & Nicu Only) 2 puff IH QID PRN #8.5 gram 08/27/19 Unknown Rx [ProAir HFA Inhaler] DOXYCYCLINE Hyclate [Vibramycin 100 mg PO BID 7 Days #14 capsule 08/27/19 Unknown Rx CAP] predniSONE [Deltasone] 3 tab PO QDAY 3 Days #9 tab 08/27/19 Unknown Rx Albuterol Mdi (or & Nicu Only) 2 puff IH QID PRN #1 inhalation 10/13/19 07/20/21 Unknown Rx [ProAir HFA Inhaler] Prednisone [predniSONE 10 mg 10 mg PO .TAPER #1 tab.ds.pk 10/13/19 Unknown Rx (6-Day Pack, 21 Tabs)] Albuterol Mdi (or & Nicu Only) 2 puff IH QID PRN #8.5 gram 12/11/20 07/20/21 07/20/21 Rx [ProAir HFA Inhaler] Azithromycin 500 mg PO DAILY 5 Days #5 tablet 12/11/20 Unknown Rx Codeine Phosphate/Guaifenesin 5 ml PO Q6H PRN #120 ml 12/11/20 Unknown Rx [Guaifenesin-Codeine Syrup] predniSONE [Deltasone] 40 mg PO QDAY 5 Days #10 tab 12/11/20 07/20/21 1 Month Ago Rx ~06/19/21 ED Review of Systems ROS: Stated complaint: CHEST PAIN Other details as noted in HPI Constitutional: denies: fever Eyes: denies: eye pain ENT: denies: throat pain Respiratory: cough, shortness of breath Cardiovascular: chest pain Endocrine: no symptoms reported Gastrointestinal: denies: nausea, vomiting Genitourinary: denies: dysuria Musculoskeletal: denies: back pain Neurological: denies: headache Physical Exam - Physical Exam Vital Signs: Vital Signs 07/20/21 07/20/21 07/20/21 13:03 13:12 13:13 Temperature 98.2 F 98.3 F Pulse Rate 81 90 Respiratory 24 26 H 14 Rate Blood Pressure 173/102 Blood Pressure 157/97 [Right] O2 Sat by Pulse 88 95 Oximetry 07/20/21 13:15 Temperature Pulse Rate 87 Respiratory 14 Rate Blood Pressure 173/102 Blood Pressure [Right] O2 Sat by Pulse 91 Oximetry Physical Exam: GENERAL: The patient is well-developed well-nourished male sitting on stretcher not appearing to be in acute distress. [] HEENT: Normocephalic. Atraumatic. Extraocular motions are intact. Patient has moist mucous membranes. NECK: Supple. Trachea midline CHEST/LUNGS: Diffuse wheezing. HEART/CARDIOVASCULAR: Regular. There is no tachycardia. There is no gallop rub or murmur. ABDOMEN: Abdomen is soft, nontender. Patient has normal bowel sounds. There is no abdominal distention. SKIN: There is no rash. There is no edema. There is no diaphoresis. NEURO: The patient is awake, alert, and oriented. The patient is cooperative. The patient has no focal neurologic deficits. The patient has normal speech. GCS 15 MUSCULOSKELETAL: There is no evidence of acute injury. ED Course Vital Signs 07/20/21 07/20/21 07/20/21 13:03 13:12 13:13 Temperature 98.2 F 98.3 F Pulse Rate 81 90 Respiratory 24 26 H 14 Rate Blood Pressure 173/102 Blood Pressure 157/97 [Right] O2 Sat by Pulse 88 95 Oximetry 07/20/21 13:15 Temperature Pulse Rate 87 Respiratory 14 Rate Blood Pressure 173/102 Blood Pressure [Right] O2 Sat by Pulse 91 Oximetry ED Medical Decision Making - Lab Data Result diagrams: 07/20/21 13:57 07/20/21 13:57 - EKG Data -: EKG Interpreted by Me EKG shows normal: sinus rhythm Rate: normal - EKG Data When compared to previous EKG there are: previous EKG unavailable Interpretation: nonspecific ST-T wave rosas (T wave inversions in leads III and aVF) - Radiology Data Radiology results: report reviewed (Chest x-ray), image reviewed (Chest x-ray) interpreted by me: Chest x-ray-no definite focal infiltrates, no pneumothorax [address] [address] XRay Report Signed Patient: ROGER BURDICK MR#: [id number] : 1960 Acct:[id number] Age/Sex: 61 / M ADM Date: 07/20/21 Loc: ED Attending Dr: Ordering Physician: GISELLA JACOBSON MD Date of Service: 07/20/21 Procedure(s): XR chest 1V ap Accession Number(s): [id number] cc: GISELLA JACOBSON MD Fluoro Time In Minutes: CHEST 1 VIEW 07/20/2021 2:12 PM INDICATION / CLINICAL INFORMATION: Shortness of breath, cough. COMPARISON: 12/10/2020 FINDINGS: SUPPORT DEVICES: None. HEART / MEDIASTINUM: No significant abnormality. LUNGS / PLEURA: No significant pulmonary or pleural abnormality. No pneumothorax. ADDITIONAL FINDINGS: No significant additional findings. IMPRESSION: 1. No acute findings. Signer Name: Erik Boo MD Signed: 07/20/2021 3:15 PM Workstation Name: [id number] Transcribed By: ANGELICA Dictated By: Erik Boo MD Electronically Authenticated By: Erik Boo MD Signed Date/Time: 07/20/211514 DD/ 14 TD/TT: Print Cancel - Differential Diagnosis COPD exacerbation, pneumonia, ACS, bronchitis, GERD Critical care attestation.: If time is entered above; I have spent that time in minutes in the direct care of this critically ill patient, excluding procedure time. ED Disposition Clinical Impression: COPD exacerbation, Hypoxia Disposition: ADMITTED INPATIENT Is pt being admited?: Yes Does the pt Need Aspirin: No Condition: Stable Instructions: Chronic Obstructive Pulmonary Disease (ED) Referrals: PRIMARY CARE, [Primary Care Provider] - 3-5 Days Time of Disposition: 16:16 (Hospitalist notified (Dr. Tellez))
[2021-07-20 14:16] LABS: Basophils # (Auto) 0.1 K/mm3 (0.0-0.1); Basophils % (Auto) 0.4 % (0.0-1.8); Eosinophils # (Auto) 1.1 K/mm3 (0.0-0.4); Eosinophils % (Auto) 8.5 % (0.0-4.3); Hematocrit 47.9 % (35.5-45.6); Lymphocytes # (Auto) 4.4 K/mm3 (1.2-5.4); Lymphocytes % (Auto) 34.4 % (13.4-35.0); Mean Corpuscular HGB Conc 31 % (32-34); Mean Corpuscular Volume 89 fl (84-94); Monocytes # (Auto) 0.7 K/mm3 (0.0-0.8); Monocytes % (Auto) 5.5 % (0.0-7.3); Platelet Count 272 K/mm3 (140-440); Red Blood Count 5.38 M/mm3 (3.65-5.03); Red Cell Distribution Width 14.4 % (13.2-15.2)
[2021-07-20 14:44] LABS: BUN/Creatinine Ratio 11; Blood Urea Nitrogen 14 mg/dL (9-20); Calcium 9.3 mg/dL (8.4-10.2); Hemolysis Index 8
--- NOTE | 2021-07-20 15:21 | XRay Report ---
CHEST 1 VIEW 07/20/2021 2:12 PM INDICATION / CLINICAL INFORMATION: Shortness of breath, cough. COMPARISON: 12/10/2020 FINDINGS: SUPPORT DEVICES: None. HEART / MEDIASTINUM: No significant abnormality. LUNGS / PLEURA: No significant pulmonary or pleural abnormality. No pneumothorax. ADDITIONAL FINDINGS: No significant additional findings. IMPRESSION: 1. No acute findings. Signer Name: Erik Boo MD Signed: 07/20/2021 3:15 PM Workstation Name: [id number]
[2021-07-20] MEDS ORDERED: ALBUTEROL 8.5 GM MDI INHALATION IH PRN (23:33)
[2021-07-20] MEDS ORDERED: ONDANSETRON 4 MG/2 ML INJ IV PRN (23:35)
[2021-07-20] MEDS ORDERED: oxyCODONE /ACETAMINOPHEN 5-325MG TAB PO PRN (23:35)
[2021-07-20] MEDS ORDERED: ACETAMINOPHEN 325 MG TAB PO PRN (23:35)
[2021-07-20] MEDS ORDERED: HYDROmorphone 1 MG/1 ML INJ IV PRN (23:35)
[2021-07-20] MEDS ORDERED: METOCLOPRAMIDE 10 MG/2 ML INJ IV PRN (23:35)
[2021-07-20] MEDS ORDERED: IPRATROPIUM/ALBUTEROL SULFATE 3 ML AMPUL.NEB IH PRN (23:38)
--- NOTE | 2021-07-20 23:41 | History and Physical Report ---
History of Present Illness Date of examination: 07/20/21 Date of admission: 07/20/21 16:17 Chief complaint: Progressive shortness of breath for 2 weeks. History of present illness: 61-year-old man with history of hypertension and COPD comes in for progressive shortness of breath for the last 2 weeks. Worsening shortness of breath associated with cough. Cough productive of yellow sputum. No fever or chills. No exposure to Covid. Patient states he is not vaccinated against Covid. Not responsive to outpatient treatment. Occasional chest pain secondary to muscle spasms. No retrosternal chest pain. - Past Medical History --Hypertension: Yes --COPD: Yes (No home O2) Additional medical history: Bronchitis - Surgical History Additional Surgical History: right breast tissue removed 1990 - Family History --Family history: no significant - Social History --Smoking Status: Current Every Day Smoker (1/2 pack/day) --Substance Use Type: Alcohol (Occasional), Heroin ([place]. Patient denies IVDA) Review of Systems ROS: Stated complaint: CHEST PAIN Other details as noted in HPI Constitutional: denies: fever Eyes: denies: eye pain ENT: denies: throat pain Respiratory: cough, shortness of breath Cardiovascular: chest pain Endocrine: no symptoms reported Gastrointestinal: denies: nausea, vomiting Genitourinary: denies: dysuria Musculoskeletal: denies: back pain Neurological: denies: headache Medications and Allergies Allergies Allergy/AdvReac Type Severity Reaction Status Date / Time No Known Allergies Allergy Verified 09/02/20 11:26 Home Medications Medication Instructions Recorded Confirmed Last Taken Type Albuterol Mdi (or & Nicu Only) 2 puff IH Q4HR PRN #1 inhalation 07/15/19 Unknown Rx [ProAir HFA Inhaler] Azithromycin [Zithromax Z-CHITO] 250 mg PO DAILY #6 tablet 07/15/19 Unknown Rx Benzonatate [Tessalon Perles] 100 mg PO Q8HR PRN #20 capsule 07/15/19 Unknown Rx guaiFENesin/CODEINE [Robitussin AC] 5 ml PO Q12HR PRN #180 oral.liqd 07/15/19 Unknown Rx predniSONE [Deltasone] 20 mg PO DAILY #15 tablet 07/15/19 Unknown Rx Albuterol Mdi (or & Nicu Only) 2 puff IH QID PRN #8.5 gram 12/24/19 Unknown Rx [ProAir HFA Inhaler] DOXYCYCLINE Hyclate [Vibramycin 100 mg PO BID 7 Days #14 capsule 08/27/19 Unkno wn Rx CAP] predniSONE [Deltasone] 3 tab PO QDAY 3 Days #9 tab 08/27/19 Unknown Rx Albuterol Mdi (or & Nicu Only) 2 puff IH QID PRN #1 inhalation 10/13/19 07/20/21 Unknown Rx [ProAir HFA Inhaler] Prednisone [predniSONE 10 mg 10 mg PO .TAPER #1 tab.ds.pk 10/13/19 Unknown Rx (6-Day Pack, 21 Tabs)] Albuterol Mdi (or & Nicu Only) 2 puff IH QID PRN #8.5 gram 12/11/20 07/20/21 07/20/21 Rx [ProAir HFA Inhaler] Azithromycin 500 mg PO DAILY 5 Days #5 tablet 12/11/20 Unknown Rx Codeine Phosphate/Guaifenesin 5 ml PO Q6H PRN #120 ml 12/11/20 Unknown Rx [Guaifenesin-Codeine Syrup] predniSONE [Deltasone] 40 mg PO QDAY 5 Days #10 tab 12/11/20 07/20/21 1 Month Ago Rx ~06/19/21 Exam - Constitutional Vitals: Temp Pulse Resp BP Pulse Ox 98.3 F 89 16 177/117 99 07/20/21 13:12 07/20/21 20:01 07/20/21 21:45 07/20/21 21:45 07/20/21 21:45 General appearance: Present: mild distress, well-nourished - EENT Eyes: Present: PERRL ENT: hearing intact, clear oral mucosa - Neck Neck: Present: supple, normal ROM - Respiratory Respiratory effort: normal Respiratory: bilateral: diminished, rales, rhonchi - Cardiovascular Heart rate: 78 Rhythm: regular Heart Sounds: Present: S1 & S2. Absent: rub, click - Extremities Extremities: pulses symmetrical, No edema Peripheral Pulses: within normal limits - Abdominal General gastrointestinal: Present: soft, non-tender, non-distended, normal bowel sounds Male genitourinary: Present: normal - Rectal Rectal Exam: deferred - Integumentary Integumentary: Present: clear, warm, dry - Musculoskeletal Musculoskeletal: gait normal, strength equal bilaterally - Psychiatric Psychiatric: appropriate mood/affect, intact judgment & insight - Neurologic Neurologic: CNII-XII intact, moves all extremities - Allied Health Allied health notes reviewed: nursing, case management HEART Score - HEART Score History: Slightly suspicious Risk factors: 1-2 risk factors Troponin: Troponin T < 0.010 ng/mL (0.00-0.029) 07/20/21 13:57 Troponin: < normal limit - Critical Actions Critical Actions: 0-3 pts:0.9-1.7%risk of adverse cardiac event.Candidate for discharge Results - Labs CBC & Chem 7: 07/21/21 04:41 07/21/21 04:41 Labs: Laboratory Last Values WBC 12.8 K/mm3 (4.5-11.0) H 07/20/21 13:57 RBC 5.38 M/mm3 (3.65-5.03) H 07/20/21 13:57 Hgb 15.0 gm/dl (11.8-15.2) 07/20/21 13:57 Hct 47.9 % (35.5-45.6) H 07/20/21 13:57 MCV 89 fl (84-94) 07/20/21 13:57 MCH 28 pg (28-32) 07/20/21 13:57 MCHC 31 % (32-34) L 07/20/21 13:57 RDW 14.4 % (13.2-15.2) 07/20/21 13:57 Plt Count 272 K/mm3 (140-440) 07/20/21 13:57 Lymph % (Auto) 34.4 % (13.4-35.0) 07/20/21 13:57 Door % (Auto) 5.5 % (0.0-7.3) 07/20/21 13:57 Eos % (Auto) 8.5 % (0.0-4.3) H 07/20/21 13:57 Baso % (Auto) 0.4 % (0.0-1.8) 07/20/21 13:57 Lymph # (Auto) 4.4 K/mm3 (1.2-5.4) 07/20/21 13:57 Door # (Auto) 0.7 K/mm3 (0.0-0.8) 07/20/21 13:57 Eos # (Auto) 1.1 K/mm3 (0.0-0.4) H 07/20/21 13:57 Baso # (Auto) 0.1 K/mm3 (0.0-0.1) 07/20/21 13:57 Seg Neutrophils % 51.2 % (40.0-70.0) 07/20/21 13:57 Seg Neutrophils # 6.5 K/mm3 (1.8-7.7) 07/20/21 13:57 Sodium 137 mmol/L (137-145) 07/20/21 13:57 Potassium 4.0 mmol/L (3.6-5.0) 07/20/21 13:57 Chloride 100.0 mmol/L (98-107) 07/20/21 13:57 Carbon Dioxide 20 mmol/L (22-30) L 07/20/21 13:57 Anion Gap 21 mmol/L 07/20/21 13:57 BUN 14 mg/dL (9-20) 07/20/21 13:57 Creatinine 1.3 mg/dL (0.8-1.3) 07/20/21 13:57 Estimated GFR > 60 ml/min 07/20/21 13:57 BUN/Creatinine Ratio 11 % 07/20/21 13:57 Glucose 124 mg/dL (75-100) H 07/20/21 13:57 Lactic Acid 1.60 mmol/L (0.7-2.0) 07/20/21 15:02 Calcium 9.3 mg/dL (8.4-10.2) 07/20/21 13:57 Total Creatine Kinase 121 units/L (55-170) 07/20/21 13:57 CK-MB (CK-2) 3.0 ng/mL (0.0-4.0) 07/20/21 13:57 CK-MB (CK-2) Rel Index 2.4 (0-4) 07/20/21 13:57 Troponin T < 0.010 ng/mL (0.00-0.029) 07/20/21 13:57 NT-Pro-B Natriuret Pep 67.01 pg/mL (0-900) 07/20/21 13:57 Short CBC 07/20/21 07/21/21 Range/Units 13:57 04:41 WBC 12.8 H 7.9 (4.5-11.0) K/mm3 Hgb 15.0 13.5 (11.8-15.2) gm/dl Hct 47.9 H 42.2 (35.5-45.6) % Plt Count 272 237 (140-440) K/mm3 BMP 07/20/21 07/21/21 13:57 04:41 Sodium 137 135 L Potassium 4.0 4.6 Chloride 100.0 99.1 Carbon Dioxide 20 L 20 L BUN 14 20 Creatinine 1.3 1.1 Glucose 124 H 196 H Calcium 9.3 9.2 Cardiac Enzymes 07/20/21 Range/Units 13:57 Total Creatine Kinase 121 (55-170) units/L CK-MB (CK-2) 3.0 (0.0-4.0) ng/mL Troponin T < 0.010 (0.00-0.029) ng/mL Liver Function 07/21/21 Range/Units 04:41 Total Bilirubin 0.70 (0.1-1.2) mg/dL AST 12 (5-40) units/L ALT 12 (7-56) units/L Alkaline Phosphatase 55 (35-129) units/L Albumin 4.5 (3.9-5) g/dL Microbiology: Microbiology 07/20/21 13:57 Peripheral/Venous Blood Culture - Preliminary Culture in Progress 07/20/21 13:57 Peripheral/Venous Blood Culture - Preliminary Culture in Progress - Imaging and Cardiology EKG: report reviewed Chest x-ray: report reviewed Imaging and Cardiology: Chest x-ray no acute findings Assessment and Plan Advance Directives: Yes (Full code) VTE prophylaxis?: Chemical Plan of care discussed with patient/family: Yes - Patient Problems (1) Acute respiratory failure with hypoxia Current Visit: Yes Status: Acute Plan to address problem: Patient initiated on duo nebs IV Solu-Medrol and IV Levaquin BiPAP as necessary Intubation if necessary Nasal cannula oxygen levels to be adjusted by respiratory therapist (2) COPD exacerbation Current Visit: Yes Status: Acute Plan to address problem: Patient initiated on IV Solu-Medrol, IV Levaquin and duo nebs [id number] and as needed (3) Hypertension Current Visit: Yes Status: Chronic Qualifiers: Hypertension type: primary hypertension Qualified Code(s): I10 - Essential (primary) hypertension Plan to address problem: Continue antihypertensives (4) DVT prophylaxis Current Visit: Yes Status: Acute Plan to address problem: On anticoagulation GI prophylaxis
[2021-07-20] MEDS ORDERED: ALBUTEROL 2.5 MG/3 ML NEBU IH PRN (23:51)
[2021-07-21] MEDS: methylPREDNISolone Sod Succinate 40 MG/1 ML INJ IV SCH ×4 (00:10→21:50)
[2021-07-21 05:19] LABS: Basophils % (Auto) 0.1 % (0.0-1.8); Hematocrit 42.2 % (35.5-45.6); Hemoglobin 13.5 gm/dl (11.8-15.2); Lymphocytes # (Auto) 0.9 K/mm3 (1.2-5.4); Lymphocytes % (Auto) 11.4 % (13.4-35.0); Mean Corpuscular HGB Conc 32 % (32-34); Mean Corpuscular Volume 89 fl (84-94); Monocytes # (Auto) 0.1 K/mm3 (0.0-0.8); Monocytes % (Auto) 0.8 % (0.0-7.3); Platelet Count 237 K/mm3 (140-440); Red Blood Count 4.76 M/mm3 (3.65-5.03); Red Cell Distribution Width 14.3 % (13.2-15.2)
[2021-07-21 05:50] LABS: Alanine Aminotransferase 12 units/L (7-56); Albumin 4.5 g/dL (3.9-5); BUN/Creatinine Ratio 18; Blood Urea Nitrogen 20 mg/dL (9-20); Calcium 9.2 mg/dL (8.4-10.2); Hemolysis Index 7
--- NOTE | 2021-07-21 08:41 | Electrocardiograph Report ---
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
[2021-07-21] MEDS: IPRATROPIUM/ALBUTEROL SULFATE 3 ML AMPUL.NEB IH SCH ×3 (11:06→19:37)
[2021-07-21] MEDS: FAMOTIDINE 20 MG/2 ML INJ IV SCH ×2 (11:25→21:50)
[2021-07-21] MEDS: guaiFENesin ER 600 MG TAB PO SCH ×2 (11:25→21:50)
[2021-07-21] MEDS: HEPARIN 5,000 UNIT/1 ML VIAL SUB-Q SCH ×2 (11:25→21:50)
[2021-07-21] MEDS: cefTRIAXone/NS 1 GM/50 ML 1 GM/50 ML BAG IV SCH (11:26)
[2021-07-21] MEDS: AZITHROMYCIN 250 MG TAB PO SCH (11:26)
--- NOTE | 2021-07-21 13:15 | Consultation ---
History of Present Illness Consult date: 07/21/21 Reason for consult: dyspnea, cough, COPD History of present illness: 61-year-old man with history of hypertension and COPD comes in for progressive shortness of breath for the last 2 weeks. Worsening shortness of breath associated with cough. Cough productive of yellow sputum. No fever or chills. No exposure to Covid. Patient states he is not vaccinated against Covid. Not responsive to outpatient treatment. Occasional chest pain secondary to muscle spasms. No retrosternal chest pain. Patient has history of COPD and hypertension. Patient has history of smoking. 1 pack for 15 years. Still smoking. Counseled to stop smoking. Patient has history of drug abuse. Uses Heroin. Occasional alcohol. Patient not working. says never worked in the past. Not . Has two children. No known drug allergies. Patient alert, awake. Resting on 4 litres O2. O2 saturation 89%. still complaining some shortness of breath and cough. Says chest pain is better. Patient afebrile. No leukocytosis. Blood pressure 151/92, Pulse 72, respirations 20. Chest xray done 07/20/21 reported No acute findings. Patient presently on I/V solumedrol, Albuterol/atrovent aerosol treatments, S/C Heparin, famotidine, ceftriaxone and zithromax. - Past History Past Medical History: COPD, hypertension Social history: single, smoking, other (Uses heroin.) Medications and Allergies Allergies Allergy/AdvReac Type Severity Reaction Status Date / Time No Known Allergies Allergy Verified 09/02/20 11:26 Home Medications Medication Instructions Recorded Confirmed Last Taken Type Albuterol Mdi (or & Nicu Only) 2 puff IH QID PRN #1 inhalation 10/13/19 07/20/21 Unknown Rx [ProAir HFA Inhaler] Albuterol Mdi (or & Nicu Only) 2 puff IH QID PRN #8.5 gram 12/11/20 07/20/21 07/20/21 Rx [ProAir HFA Inhaler] predniSONE [Deltasone] 40 mg PO QDAY 5 Days #10 tab 12/11/20 07/20/21 1 Month Ago Rx ~06/19/21 Active Meds: Active Medications Acetaminophen (Acetaminophen 325 Mg Tab) 650 mg PO Q4H PRN PRN Reason: Pain MILD(1-3)/Fever >100.5/LINDSAY Albuterol (Albuterol 2.5 Mg/3 Ml Nebu) 2.5 mg IH QIDRT PRN PRN Reason: Shortness Of Breath Albuterol/Ipratropium (Ipratropium/Albuterol Sulfate 3 Ml Ampul.Neb) 1 ampul IH QIDRT [facility] Last Admin: 07/21/21 11:06 Dose: Not Given Documented by: Azithromycin (Azithromycin 250 Mg Tab) 500 mg PO QDAY [facility]; Protocol Last Admin: 07/21/21 11:26 Dose: 500 mg Documented by: Famotidine (Famotidine 20 Mg/2 Ml Inj) 20 mg IV BID [facility] Last Admin: 07/21/21 11:25 Dose: 20 mg Documented by: Guaifenesin (Guaifenesin Er 600 Mg Tab) 600 mg PO BID [facility] Last Admin: 07/21/21 11:25 Dose: 600 mg Documented by: Heparin Sodium (Porcine) (Heparin 5,000 Unit/1 Ml Vial) 5,000 unit SUB-Q Q12HR [facility] Last Admin: 07/21/21 11:25 Dose: 5,000 unit Documented by: Ceftriaxone Sodium (Rocephin/Ns 1 Gm/50 Ml) 1 gm in 50 mls @ 100 mls/hr IV Q24H [facility]; Protocol Last Admin: 07/21/21 11:26 Dose: 100 mls/hr Documented by: Methylprednisolone Sodium Succinate (Methylprednisolone Sod Succinate 40 Mg/1 Ml Inj) 80 mg IV Q8HR [facility] Last Admin: 07/21/21 06:07 Dose: 80 mg Documented by: Metoclopramide HCl (Metoclopramide 10 Mg/2 Ml Inj) 10 mg IV Q6H PRN PRN Reason: Nausea And Vomiting Ondansetron HCl (Ondansetron 4 Mg/2 Ml Inj) 4 mg IV Q3H PRN PRN Reason: Nausea And Vomiting Last Admin: 07/21/21 00:11 Dose: 4 mg Documented by: Sodium Chloride (Sodium Chloride 0.9% 10 Ml Flush Syringe) 10 ml IV BID [facility] Last Admin: 07/21/21 11:25 Dose: 10 ml Documented by: Sodium Chloride (Sodium Chloride 0.9% 10 Ml Flush Syringe) 10 ml IV PRN PRN PRN Reason: LINE FLUSH Review of Systems All systems: negative Physical Examination Vital signs: Vital Signs Temp Pulse Resp BP Pulse Ox 98.2 F 81 24 157/97 88 07/20/21 13:03 07/20/21 13:03 07/20/21 13:03 07/20/21 13:03 07/20/21 13:03 General appearance: alert, appears uncomfortable Eyes: non-icteric ENT: oropharynx moist Neck: supple, no JVD Ascultation: Bilateral: wheezes, rhonchi Cardiovascular: regular rate and rhythm Gastrointestinal: normoactive bowel sounds, soft, non-tender Integumentary: normal Extremities: no cyanosis, no edema Musculoskeletal: no deformities Gait: other (Resting in room at this time.) normal mental status, non-focal exam, pupils equal and round, CN II-XII normal mood appropriate Results - Laboratory Findings CBC and BMP: 07/21/21 04:41 07/21/21 04:41 Abnormal lab findings: Abnormal Labs 07/20/21 07/20/21 07/20/21 13:57 13:57 13:57 WBC 12.8 H RBC 5.38 H Hct 47.9 H MCHC 31 L Lymph % (Auto) Eos % (Auto) 8.5 H Lymph # (Auto) Eos # (Auto) 1.1 H Seg Neutrophils % Sodium Carbon Dioxide 20 L Glucose 124 H Lactic Acid 2.20 H* 07/21/21 07/21/21 04:41 04:41 WBC RBC Hct MCHC Lymph % (Auto) 11.4 L Eos % (Auto) Lymph # (Auto) 0.9 L Eos # (Auto) Seg Neutrophils % 87.7 H Sodium 135 L Carbon Dioxide 20 L Glucose 196 H Lactic Acid - Diagnostic Findings Chest x-ray: report reviewed, image reviewed Additional studies: CHEST 1 VIEW 07/20/2021 2:12 PM INDICATION / CLINICAL INFORMATION: Shortness of breath, cough. COMPARISON: 12/10/2020 FINDINGS: SUPPORT DEVICES: None. HEART / MEDIASTINUM: No significant abnormality. LUNGS / PLEURA: No significant pulmonary or pleural abnormality. No pneumothorax. ADDITIONAL FINDINGS: No significant additional findings. IMPRESSION: 1. No acute findings. Assessment and Plan 61-year-old man with history of hypertension and COPD comes in for progressive shortness of breath for the last 2 weeks. Worsening shortness of breath associ ated with cough. Cough productive of yellow sputum. No fever or chills. No exposure to Covid. Patient states he is not vaccinated against Covid. Not responsive to outpatient treatment. Occasional chest pain secondary to muscle spasms. No retrosternal chest pain. Patient has history of COPD and hypertension. Patient has history of smoking. 1 pack for 15 years. Still smoking. Counseled to stop smoking. Patient has history of drug abuse. Uses Heroin. Occasional alcohol. Patient not working. says never worked in the past. Not . Has two children. No known drug allergies. Patient alert, awake. Resting on 4 litres O2. O2 saturation 89%. still complaining some shortness of breath and cough. Says chest pain is better. Patient afebrile. No leukocytosis. Blood pressure 151/92, Pulse 72, respirations 20. Chest xray done 07/20/21 reported No acute findings. Patient presently on I/V solumedrol, Albuterol/atrovent aerosol treatments, S/C Heparin, famotidine, ceftriaxone and zithromax. - Patient Problems (1) Acute respiratory failure with hypoxia Current Visit: Yes Status: Acute Plan to address problem: O2 4 litres via nasal canula. Continue I/V solumedrol. Continue albuterol/atrovent aerosol treatments q 6 hours. Continue S/C Heparin. Continue famotidine. Continue ceftriaxone and zithromax. ABGs on 4 litres O2. (2) COPD exacerbation Current Visit: Yes Status: Acute Plan to address problem: O2 4 litres via nasal canula. Continue I/V solumedrol. Continue albuterol/atrovent aerosol treatments q 6 hours. Continue S/C Heparin. Continue famotidine. Continue ceftriaxone and zithromax. ABGs on 4 litres O2. PFTs as out patient. Counseled to stop smoking. (3) Hypertension Current Visit: Yes Status: Chronic Qualifiers: Hypertension type: primary hypertension Qualified Code(s): I10 - Essential (primary) hypertension Plan to address problem: Management as per primary care.
--- NOTE | 2021-07-21 18:24 | Progress Note ---
Assessment and Plan Assessment and plan: 61-year-old man with history of hypertension and COPD comes in for progressive shortness of breath for the last 2 weeks. Worsening shortness of breath associated with cough. Cough productive of yellow sputum. No fever or chills. No exposure to Covid. Patient states he is not vaccinated against Covid. Not responsive to outpatient treatment. Occasional chest pain secondary to muscle spasms. No retrosternal chest pain. (1) Acute respiratory failure with hypoxia Current Visit: Yes Status: Acute Plan to address problem: Patient initiated on duo nebs IV Solu-Medrol and empiric antibiotics Symptoms have been improving Nasal cannula oxygen levels to be adjusted by respiratory therapist (2) COPD exacerbation Current Visit: Yes Status: Acute Plan to address problem: Patient is a chronic smoker, 1 PPD Denies history of COPD but does not see doctors. Never needed home O2. Initiated on IV Solu-Medrol, IV antibiotics and duo nebs [id number] and as needed Symptoms already improving (3) Hypertension Current Visit: Yes Status: Chronic Qualifiers: Hypertension type: primary hypertension Qualified Code(s): I10 - Essential (primary) hypertension Plan to address problem: Continue antihypertensives (4) tobacco smoker, 1 PPD x many years Patient agreed to quit DVT prophylaxis Current Visit: Yes Status: Acute Plan to address problem: On anticoagulation GI prophylaxis History Interval history: Patient reports improvement of cough, breathing and wheezing since admitted. Is a chronic smoker. Does not see the doctors. Denies history of COPD. Afebrile. Has some yellow sputum but no hemoptysis. No chest pains. Hospitalist Physical - Constitutional Vitals: Temp Pulse Resp BP Pulse Ox 98.1 F 72 20 151/92 89 07/21/21 12:26 07/21/21 12:26 07/21/21 12:26 07/21/21 13:30 07/21/21 13:30 General appearance: Present: mild distress, well-nourished - EENT Eyes: Present: PERRL. Absent: scleral icterus ENT: hearing intact, clear oral mucosa - Neck Neck: Present: supple - Respiratory Respiratory effort: normal Respiratory: bilateral: diminished, wheezing (Bilateral diffuse wheezes.) - Cardiovascular Rhythm: regular - Extremities Extremities: No edema - Abdominal General gastrointestinal: soft, non-tender, non-distended, normal bowel sounds - Integumentary Integumentary: Absent: rash - Psychiatric Psychiatric: appropriate mood/affect - Neurologic Neurologic: no focal deficits HEART Score - HEART Score Risk factors: 1-2 risk factors Troponin: Troponin T < 0.010 ng/mL (0.00-0.029) 07/20/21 13:57 Troponin: < normal limit - Critical Actions Critical Actions: 0-3 pts:0.9-1.7%risk of adverse cardiac event.Candidate for discharge Results - Labs CBC & Chem 7: 07/21/21 04:41 07/21/21 04:41 Labs: Laboratory Last Values WBC 7.9 K/mm3 (4.5-11.0) 07/21/21 04:41 RBC 4.76 M/mm3 (3.65-5.03) 07/21/21 04:41 Hgb 13.5 gm/dl (11.8-15.2) 07/21/21 04:41 Hct 42.2 % (35.5-45.6) 07/21/21 04:41 MCV 89 fl (84-94) 07/21/21 04:41 MCH 28 pg (28-32) 07/21/21 04:41 MCHC 32 % (32-34) 07/21/21 04:41 RDW 14.3 % (13.2-15.2) 07/21/21 04:41 Plt Count 237 K/mm3 (140-440) 07/21/21 04:41 Lymph % (Auto) 11.4 % (13.4-35.0) L 07/21/21 04:41 [place] % (Auto) 0.8 % (0.0-7.3) 07/21/21 04:41 Eos % (Auto) 0.0 % (0.0-4.3) 07/21/21 04:41 Baso % (Auto) 0.1 % (0.0-1.8) 07/21/21 04:41 Lymph # (Auto) 0.9 K/mm3 (1.2-5.4) L 07/21/21 04:41 [place] # (Auto) 0.1 K/mm3 (0.0-0.8) 07/21/21 04:41 Eos # (Auto) 0.0 K/mm3 (0.0-0.4) 07/21/21 04:41 Baso # (Auto) 0.0 K/mm3 (0.0-0.1) 07/21/21 04:41 Seg Neutrophils % 87.7 % (40.0-70.0) H 07/21/21 04:41 Seg Neutrophils # 7.0 K/mm3 (1.8-7.7) 07/21/21 04:41 Sodium 135 mmol/L (137-145) L 07/21/21 04:41 Potassium 4.6 mmol/L (3.6-5.0) 07/21/21 04:41 Chloride 99.1 mmol/L (98-107) 07/21/21 04:41 Carbon Dioxide 20 mmol/L (22-30) L 07/21/21 04:41 Anion Gap 21 mmol/L 07/21/21 04:41 BUN 20 mg/dL (9-20) 07/21/21 04:41 Creatinine 1.1 mg/dL (0.8-1.3) 07/21/21 04:41 Estimated GFR > 60 ml/min 07/21/21 04:41 BUN/Creatinine Ratio 18 % 07/21/21 04:41 Glucose 196 mg/dL (75-100) H 07/21/21 04:41 Lactic Acid 1.60 mmol/L (0.7-2.0) 07/20/21 15:02 Calcium 9.2 mg/dL (8.4-10.2) 07/21/21 04:41 Total Bilirubin 0.70 mg/dL (0.1-1.2) 07/21/21 04:41 AST 12 units/L (5-40) 07/21/21 04:41 ALT 12 units/L (7-56) 07/21/21 04:41 Alkaline Phosphatase 55 units/L (35-129) 07/21/21 04:41 Total Creatine Kinase 121 units/L (55-170) 07/20/21 13:57 CK-MB (CK-2) 3.0 ng/mL (0.0-4.0) 07/20/21 13:57 CK-MB (CK-2) Rel Index 2.4 (0-4) 07/20/21 13:57 Troponin T < 0.010 ng/mL (0.00-0.029) 07/20/21 13:57 NT-Pro-B Natriuret Pep 67.01 pg/mL (0-900) 07/20/21 13:57 Total Protein 7.6 g/dL (6.3-8.2) 07/21/21 04:41 Albumin 4.5 g/dL (3.9-5) 07/21/21 04:41 Albumin/Globulin Ratio 1.5 % 07/21/21 04:41 Microbiology: Microbiology 07/20/21 13:57 Peripheral/Venous Blood Culture - Preliminary NO GROWTH AFTER 24 HOURS 07/20/21 13:57 Peripheral/Venous Blood Culture - Preliminary NO GROWTH AFTER 24 HOURS Active Medications - Current Medications Current Medications: Generic Name Dose Route Start Last Admin Trade Name Freq PRN Reason Stop Dose Admin Acetaminophen 650 mg 07/20/21 23:35 Acetaminophen 325 Mg Tab PO Q4H PRN Pain MILD(1-3)/Fever >100.5/LINDSAY Albuterol 2.5 mg 07/20/21 23:51 Albuterol 2.5 Mg/3 Ml Nebu IH QIDRT PRN Shortness Of Breath Albuterol/Ipratropium 1 ampul 07/21/21 08:00 07/21/21 17:02 Ipratropium/Albuterol Sulfate 3 Ml Ampul.Neb IH Not Given QIDRT [facility] Azithromycin 500 mg 07/21/21 11:00 07/21/21 11:26 Azithromycin 250 Mg Tab PO 500 mg QDAY [facility] Administration Protocol Famotidine 20 mg 07/21/21 10:00 07/21/21 11:25 Famotidine 20 Mg/2 Ml Inj IV 20 mg BID [facility] Administration Guaifenesin 600 mg 07/21/21 11:00 07/21/21 11:25 Guaifenesin Er 600 Mg Tab PO 600 mg BID [facility] Administration Heparin Sodium (Porcine) 5,000 unit 07/21/21 10:00 07/21/21 11:25 Heparin 5,000 Unit/1 Ml Vial SUB-Q 5,000 unit Q12HR [facility] Administration Ceftriaxone Sodium 1 gm in 50 mls @ 100 mls/hr 07/21/21 11:00 07/21/21 11:26 Rocephin/Ns 1 Gm/50 Ml IV 100 mls/hr Q24H [facility] Administration Protocol Methylprednisolone Sodium Succinate 80 mg 07/20/21 23:45 07/21/21 17:02 Methylprednisolone Sod Succinate 40 Mg/1 Ml Inj IV 80 mg Q8HR [facility] Administration Metoclopramide HCl 10 mg 07/20/21 23:35 Metoclopramide 10 Mg/2 Ml Inj IV Q6H PRN Nausea And Vomiting Ondansetron HCl 4 mg 07/20/21 23:35 07/21/21 00:11 Ondansetron 4 Mg/2 Ml Inj IV 4 mg Q3H PRN Administration Nausea And Vomiting Sodium Chloride 10 ml 07/21/21 10:00 07/21/21 11:25 Sodium Chloride 0.9% 10 Ml Flush Syringe IV 10 ml BID [facility] Administration Sodium Chloride 10 ml 07/20/21 23:35 Sodium Chloride 0.9% 10 Ml Flush Syringe IV PRN PRN LINE FLUSH
[2021-07-22] MEDS: methylPREDNISolone Sod Succinate 40 MG/1 ML INJ IV SCH ×3 (05:52→21:27)
[2021-07-22] MEDS: IPRATROPIUM/ALBUTEROL SULFATE 3 ML AMPUL.NEB IH SCH ×4 (10:24→21:01)
--- NOTE | 2021-07-22 10:37 | Electrocardiograph Report ---
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
[2021-07-22] MEDS: guaiFENesin ER 600 MG TAB PO SCH ×2 (11:33→21:27)
[2021-07-22] MEDS: AZITHROMYCIN 250 MG TAB PO SCH (11:33)
[2021-07-22] MEDS: HEPARIN 5,000 UNIT/1 ML VIAL SUB-Q SCH ×2 (11:34→21:27)
--- NOTE | 2021-07-22 13:33 | Progress Note ---
Assessment and Plan Acute hypoxemic respiratory failure AE-COPD exacerbation Hypertension - added Brovana - reduced Duoneb frequency to tid - reduced solumedrol dose to 60 mg IV q8h - continue to wean supplemental oxygen to keep O2 sats > 90% - continue bronchodilators (NESTOR & LABA) with pulm hygiene per RT - continue systemic steroids with slow taper - continue inhaled corticosteroids - avoid nephrotoxins, renally dose all medications - continue mobility protocols to prevent pressure ulcers - PT/OT as tolerated - Wound care per RN/WCT - continue accuchecks with glycemic control per SSI for target blood glucose < 180 mg/dL - tobacco abstinence strongly counseled at the bedside - home oxygen evaluation at discharge - GI & VTE prophylaxis - Flu & pneumovax per protocol - Pulmonary out patient follow up for PFTs and optimization of respiratory status - continue other care per attending / other consultants - prn analgesia per pain score ... re-evaluate in am & prn Subjective Date of service: 07/22/21 Principal diagnosis: Acute hypoxemic resp failure; AE-COPD exacerbation; Hypertension Interval history: Patient is seen today for: Acute hypoxemic respiratory failure; AE-COPD exacerbation; Hypertension Seen and examined at bedside; 24hour events reviewed; nursing and respiratory care staff consulted; no adverse overnight events reported to me; resting peacefully in bed; feels better overall; denies acute chest pain or SOB Objective Vital Signs - 12hr 07/22/21 07/22/21 07/22/21 03:45 07:46 10:24 Temperature 97.8 F 97.7 F Pulse Rate 53 L 63 Pulse Rate [ 70 Anterior Bilateral Throughout] Respiratory 18 20 Rate Respiratory 20 Rate [Anterior Bilateral Throughout] Blood Pressure 139/85 113/78 O2 Sat by Pulse 98 93 98 Oximetry Constitutional: no acute distress, alert Eyes: non-icteric ENT: oropharynx moist Neck: supple, no JVD Effort: mildly labored Ascultation: Bilateral: rhonchi (scant bases), other (prolonged expiratopry phase) Percussion: Bilateral: not dull Cardiovascular: regular rate and rhythm Gastrointestinal: normoactive bowel sounds, soft, non-tender, non-distended Integumentary: normal Extremities: no cyanosis, no edema, pulses normal, no ischemia or petechiae Neurologic: normal mental status, non-focal exam, pupils equal and round, motor strength normal and Psychiatric: mood appropriate, affect normal CBC and BMP: 07/21/21 04:41 07/21/21 04:41 Abnormal lab findings: Abnormal Labs 07/20/21 07/20/21 07/20/21 13:57 13:57 13:57 WBC 12.8 H RBC 5.38 H Hct 47.9 H MCHC 31 L Lymph % (Auto) Eos % (Auto) 8.5 H Lymph # (Auto) Eos # (Auto) 1.1 H Seg Neutrophils % Sodium Carbon Dioxide 20 L Glucose 124 H Lactic Acid 2.20 H* 07/21/21 07/21/21 04:41 04:41 WBC RBC Hct MCHC Lymph % (Auto) 11.4 L Eos % (Auto) Lymph # (Auto) 0.9 L Eos # (Auto) Seg Neutrophils % 87.7 H Sodium 135 L Carbon Dioxide 20 L Glucose 196 H Lactic Acid Chest x-ray: image reviewed Allied health notes reviewed: nursing (mild hypoventilation)
[2021-07-22] MEDS: cefTRIAXone/NS 1 GM/50 ML 1 GM/50 ML BAG IV SCH (14:47)
[2021-07-22] MEDS: FAMOTIDINE 20 MG/2 ML INJ IV SCH (15:03)
--- NOTE | 2021-07-22 18:32 | Progress Note ---
Assessment and Plan Assessment and plan: 61-year-old man with history of hypertension, chronic sinus congestion and bronchitis comes in for sinus congestion, cough and progressive shortness of breath for the last 2 weeks. Cough productive of yellow sputum. No fever or chills. No exposure to Covid. Patient states he is not vaccinated against Covid. Not responsive to outpatient treatment. Occasional chest pain secondary to muscle spasms. No retrosternal chest pain. (1) Acute respiratory failure with hypoxia Current Visit: Yes Status: Acute Plan to address problem: Patient initiated on duo nebs IV Solu-Medrol and empiric antibiotics Symptoms have been improving Nasal cannula oxygen levels to be adjusted by respiratory therapist (2) acute on chronic sinusitis, COPD exacerbation with history of bronchitis Current Visit: Yes Status: Acute Plan to address problem: Patient is a chronic smoker, 1 PPD Use history of bronchitis but denies history of COPD but does not see doctors. Never needed home O2. Initiated on IV Solu-Medrol, IV antibiotics and duo nebs as well as Flonase and mucolytic's Symptoms improving (3) Hypertension Current Visit: Yes Status: Chronic Qualifiers: Hypertension type: primary hypertension Qualified Code(s): I10 - Essential (primary) hypertension Plan to address problem: Continue antihypertensives (4) tobacco smoker, 1 PPD x many years Patient agreed to quit DVT prophylaxis Current Visit: Yes Status: Acute Plan to address problem: On anticoagulation GI prophylaxis History Interval history: Patient reports improvement of cough, breathing and wheezing since admitted. Still has a wheezes. Has significant sinus congestion which is chronic per patient. No purulent sputum or hemoptysis. No chest pains. Afebrile. Vital signs stable. Hospitalist Physical - Constitutional Vitals: Temp Pulse Resp BP Pulse Ox 97.5 F L 69 20 119/70 95 07/22/21 11:54 07/22/21 14:19 07/22/21 14:19 07/22/21 11:54 07/22/21 14:19 General appearance: Present: mild distress, disheveled - EENT Eyes: Present: PERRL, EOM intact - Neck Neck: Present: supple - Respiratory Respiratory effort: labored, other (Mild dyspnea without acute respiratory distress) Respiratory: bilateral: diminished, wheezing (Wheezing improving) - Cardiovascular Rhythm: regular - Extremities Extremities: No edema - Abdominal General gastrointestinal: soft, non-tender, non-distended, normal bowel sounds - Integumentary Integumentary: Absent: rash - Psychiatric Psychiatric: appropriate mood/affect - Neurologic Neurologic: no focal deficits, moves all extremities HEART Score - HEART Score Risk factors: 1-2 risk factors Troponin: Troponin T < 0.010 ng/mL (0.00-0.029) 07/20/21 13:57 Troponin: < normal limit - Critical Actions Critical Actions: 0-3 pts:0.9-1.7%risk of adverse cardiac event.Candidate for discharge Results - Labs CBC & Chem 7: 07/21/21 04:41 07/21/21 04:41 Labs: Laboratory Last Values WBC 7.9 K/mm3 (4.5-11.0) 07/21/21 04:41 RBC 4.76 M/mm3 (3.65-5.03) 07/21/21 04:41 Hgb 13.5 gm/dl (11.8-15.2) 07/21/21 04:41 Hct 42.2 % (35.5-45.6) 07/21/21 04:41 MCV 89 fl (84-94) 07/21/21 04:41 MCH 28 pg (28-32) 07/21/21 04:41 MCHC 32 % (32-34) 07/21/21 04:41 RDW 14.3 % (13.2-15.2) 07/21/21 04:41 Plt Count 237 K/mm3 (140-440) 07/21/21 04:41 Lymph % (Auto) 11.4 % (13.4-35.0) L 07/21/21 04:41 [place] % (Auto) 0.8 % (0.0-7.3) 07/21/21 04:41 Eos % (Auto) 0.0 % (0.0-4.3) 07/21/21 04:41 Baso % (Auto) 0.1 % (0.0-1.8) 07/21/21 04:41 Lymph # (Auto) 0.9 K/mm3 (1.2-5.4) L 07/21/21 04:41 [place] # (Auto) 0.1 K/mm3 (0.0-0.8) 07/21/21 04:41 Eos # (Auto) 0.0 K/mm3 (0.0-0.4) 07/21/21 04:41 Baso # (Auto) 0.0 K/mm3 (0.0-0.1) 07/21/21 04:41 Seg Neutrophils % 87.7 % (40.0-70.0) H 07/21/21 04:41 Seg Neutrophils # 7.0 K/mm3 (1.8-7.7) 07/21/21 04:41 Sodium 135 mmol/L (137-145) L 07/21/21 04:41 Potassium 4.6 mmol/L (3.6-5.0) 07/21/21 04:41 Chloride 99.1 mmol/L (98-107) 07/21/21 04:41 Carbon Dioxide 20 mmol/L (22-30) L 07/21/21 04:41 Anion Gap 21 mmol/L 07/21/21 04:41 BUN 20 mg/dL (9-20) 07/21/21 04:41 Creatinine 1.1 mg/dL (0.8-1.3) 07/21/21 04:41 Estimated GFR > 60 ml/min 07/21/21 04:41 BUN/Creatinine Ratio 18 % 07/21/21 04:41 Glucose 196 mg/dL (75-100) H 07/21/21 04:41 Lactic Acid 1.60 mmol/L (0.7-2.0) 07/20/21 15:02 Calcium 9.2 mg/dL (8.4-10.2) 07/21/21 04:41 Total Bilirubin 0.70 mg/dL (0.1-1.2) 07/21/21 04:41 AST 12 units/L (5-40) 07/21/21 04:41 ALT 12 units/L (7-56) 07/21/21 04:41 Alkaline Phosphatase 55 units/L (35-129) 07/21/21 04:41 Total Creatine Kinase 121 units/L (55-170) 07/20/21 13:57 CK-MB (CK-2) 3.0 ng/mL (0.0-4.0) 07/20/21 13:57 CK-MB (CK-2) Rel Index 2.4 (0-4) 07/20/21 13:57 Troponin T < 0.010 ng/mL (0.00-0.029) 07/20/21 13:57 NT-Pro-B Natriuret Pep 67.01 pg/mL (0-900) 07/20/21 13:57 Total Protein 7.6 g/dL (6.3-8.2) 07/21/21 04:41 Albumin 4.5 g/dL (3.9-5) 07/21/21 04:41 Albumin/Globulin Ratio 1.5 % 07/21/21 04:41 Microbiology: Microbiology 07/20/21 13:57 Peripheral/Venous Blood Culture - Preliminary NO GROWTH AFTER 48 HOURS 07/20/21 13:57 Peripheral/Venous Blood Culture - Preliminary NO GROWTH AFTER 48 HOURS Rodriguez/IV: Voiding Method Toilet Active Medications - Current Medications Current Medications: Generic Name Dose Route Start Last Admin Trade Name Freq PRN Reason Stop Dose Admin Acetaminophen 650 mg 07/20/21 23:35 Acetaminophen 325 Mg Tab PO Q4H PRN Pain MILD(1-3)/Fever >100.5/LINDSAY Albuterol 2.5 mg 07/20/21 23:51 Albuterol 2.5 Mg/3 Ml Nebu IH QIDRT PRN Shortness Of Breath Albuterol/Ipratropium 1 ampul 07/22/21 14:00 07/22/21 14:16 Ipratropium/Albuterol Sulfate 3 Ml Ampul.Neb IH 1 ampul TIDRT HARMAN Administration Arformoterol Tartrate 15 mcg 07/22/21 20:00 Arformoterol 15 Mcg/2 Ml Nebu IH Q12HRT HARMAN Azithromycin 500 mg 07/21/21 11:00 07/22/21 11:33 Azithromycin 250 Mg Tab PO 500 mg QDAY HARMAN Administration Protocol Famotidine 20 mg 07/22/21 22:00 Famotidine 20 Mg Tab PO BID HARMAN Guaifenesin 600 mg 07/21/21 11:00 07/22/21 11:33 Guaifenesin Er 600 Mg Tab PO 600 mg BID HARMAN Administration Heparin Sodium (Porcine) 5,000 unit 07/21/21 10:00 07/22/21 11:34 Heparin 5,000 Unit/1 Ml Vial SUB-Q 5,000 unit Q12HR HARMAN Administration Ceftriaxone Sodium 1 gm in 50 mls @ 100 mls/hr 07/21/21 11:00 07/22/21 14:47 Rocephin/Ns 1 Gm/50 Ml IV 100 mls/hr Q24H HARMAN Administration Protocol Methylprednisolone Sodium Succinate 60 mg 07/22/21 13:31 07/22/21 15:48 Methylprednisolone Sod Succinate 40 Mg/1 Ml Inj IV 60 mg Q8HR HARMAN Administration Metoclopramide HCl 10 mg 07/20/21 23:35 Metoclopramide 10 Mg/2 Ml Inj IV Q6H PRN Nausea And Vomiting Ondansetron HCl 4 mg 07/20/21 23:35 07/21/21 00:11 Ondansetron 4 Mg/2 Ml Inj IV 4 mg Q3H PRN Administration Nausea And Vomiting Sodium Chloride 10 ml 07/21/21 10:00 07/22/21 11:34 Sodium Chloride 0.9% 10 Ml Flush Syringe IV 10 ml BID HARMAN Administration Sodium Chloride 10 ml 07/20/21 23:35 Sodium Chloride 0.9% 10 Ml Flush Syringe IV PRN PRN LINE FLUSH
[2021-07-22] MEDS: ARFORMOTEROL 15 MCG/2 ML NEBU IH SCH (21:01)
[2021-07-22] MEDS: FAMOTIDINE 20 MG TAB PO SCH (21:27)
[2021-07-23] MEDS: methylPREDNISolone Sod Succinate 40 MG/1 ML INJ IV SCH ×2 (05:37→14:03)
[2021-07-23 08:38] VITALS: BP 133/78
[2021-07-23] MEDS: ARFORMOTEROL 15 MCG/2 ML NEBU IH SCH (08:48)
[2021-07-23] MEDS: IPRATROPIUM/ALBUTEROL SULFATE 3 ML AMPUL.NEB IH SCH ×2 (08:48→13:37)
[2021-07-23] MEDS ORDERED: FLUTICASONE PROPIONATE NASAL SPRAY 16 GM NS SCH (10:00)
[2021-07-23 10:08] LABS: C-Reactive Protein 0.2 mg/dL (0.00-1.30)
[2021-07-23] MEDS: cefTRIAXone/NS 1 GM/50 ML 1 GM/50 ML BAG IV SCH (10:37)
[2021-07-23] MEDS: AZITHROMYCIN 250 MG TAB PO SCH (10:37)
[2021-07-23] MEDS: HEPARIN 5,000 UNIT/1 ML VIAL SUB-Q SCH (10:38)
[2021-07-23] MEDS: guaiFENesin ER 600 MG TAB PO SCH (10:38)
[2021-07-23] MEDS: FAMOTIDINE 20 MG TAB PO SCH (10:38)
--- NOTE | 2021-07-23 13:14 | Progress Note ---
Assessment and Plan Acute hypoxemic respiratory failure AE-COPD exacerbation Hypertension - added Brovana - reduced Duoneb frequency to tid - reduced solumedrol dose to 60 mg IV q8h - continue to wean supplemental oxygen to keep O2 sats > 90% - continue bronchodilators (NESTOR & LABA) with pulm hygiene per RT - continue systemic steroids with slow taper - continue inhaled corticosteroids - avoid nephrotoxins, renally dose all medications - continue mobility protocols to prevent pressure ulcers - PT/OT as tolerated - Wound care per RN/WCT - continue accuchecks with glycemic control per SSI for target blood glucose < 180 mg/dL - tobacco abstinence strongly counseled at the bedside - home oxygen evaluation at discharge - GI & VTE prophylaxis - Flu & pneumovax per protocol - Pulmonary out patient follow up for PFTs and optimization of respiratory status - continue other care per attending / other consultants - prn analgesia per pain score ... re-evaluate in am & prn Subjective Date of service: 07/23/21 Principal diagnosis: Acute hypoxemic resp failure; AE-COPD exacerbation; Hypertension Interval history: Patient is seen today for: Acute hypoxemic respiratory failure; AE-COPD exacerbation; Hypertension Seen and examined at bedside; 24hour events reviewed; nursing and respiratory care staff consulted; no adverse overnight events reported to me; resting peacefully in bed Objective Vital Signs - 12hr 07/23/21 07/23/21 07/23/21 03:15 08:09 08:14 Temperature 98.8 F 97.9 F Pulse Rate 61 60 Pulse Rate [ Anterior Bilateral Throughout] Respiratory 18 18 Rate Respiratory Rate [Anterior Bilateral Throughout] Blood Pressure 127/86 133/78 O2 Sat by Pulse 93 99 91 Oximetry 07/23/21 08:48 Temperature Pulse Rate Pulse Rate [ 60 Anterior Bilateral Throughout] Respiratory Rate Respiratory 18 Rate [Anterior Bilateral Throughout] Blood Pressure O2 Sat by Pulse 93 Oximetry Constitutional: alert, appears uncomfortable Eyes: non-icteric ENT: oropharynx moist Neck: supple, no JVD Ascultation: Bilateral: wheezes, rhonchi Cardiovascular: regular rate and rhythm Gastrointestinal: normoactive bowel sounds, soft, non-tender Integumentary: normal Extremities: no cyanosis, no edema Neurologic: normal mental status, non-focal exam, pupils equal and round, CN II- XII normal Psychiatric: mood appropriate CBC and BMP: 07/21/21 04:41 07/21/21 04:41 Abnormal lab findings: Abnormal Labs 07/20/21 07/20/21 07/20/21 13:57 13:57 13:57 WBC 12.8 H RBC 5.38 H Hct 47.9 H MCHC 31 L Lymph % (Auto) Eos % (Auto) 8.5 H Lymph # (Auto) Eos # (Auto) 1.1 H Seg Neutrophils % Sodium Carbon Dioxide 20 L Glucose 124 H POC Glucose Lactic Acid 2.20 H* 07/21/21 07/21/21 07/23/21 04:41 04:41 08:13 WBC RBC Hct MCHC Lymph % (Auto) 11.4 L Eos % (Auto) Lymph # (Auto) 0.9 L Eos # (Auto) Seg Neutrophils % 87.7 H Sodium 135 L Carbon Dioxide 20 L Glucose 196 H POC Glucose 139 H Lactic Acid
--- NOTE | 2021-07-23 14:39 | Progress Note ---
Assessment and Plan Acute hypoxemic respiratory failure AE-COPD exacerbation Hypertension - stopped Solumedrol - Prednisone 40 mg p.o. daily Brovana - continue brovana & pulmicort - discharge planning ok pulmonary-jimenez - continue to wean supplemental oxygen to keep O2 sats > 90% - continue bronchodilators (NESTOR & LABA) with pulm hygiene per RT - continue systemic steroids with slow taper - continue inhaled corticosteroids - avoid nephrotoxins, renally dose all medications - continue mobility protocols to prevent pressure ulcers - PT/OT as tolerated - Wound care per RN/WCT - continue accuchecks with glycemic control per SSI for target blood glucose < 180 mg/dL - tobacco abstinence strongly counseled at the bedside again - home oxygen evaluation at discharge - GI & VTE prophylaxis - Flu & pneumovax per protocol - Pulmonary out patient follow up for PFTs and optimization of respiratory status - continue other care per attending / other consultants - prn analgesia per pain score ... re-evaluate in am & prn Subjective Date of service: 07/23/21 Principal diagnosis: Acute hypoxemic resp failure; AE-COPD exacerbation; Hypertension Interval history: Patient is seen today for: Acute hypoxemic respiratory failure; AE-COPD exacerbation; Hypertension Seen and examined at bedside; 24hour events reviewed; nursing and respiratory care staff consulted; no adverse overnight events reported to me; resting peacefully in bed; off oxygen; No N/V/F/C; tolerating steroid taper well Objective Vital Signs - 12hr 07/23/21 07/23/21 07/23/21 03:15 08:09 08:14 Temperature 98.8 F 97.9 F Pulse Rate 61 60 Pulse Rate [ Anterior Bilateral Throughout] Respiratory 18 18 Rate Respiratory Rate [Anterior Bilateral Throughout] Blood Pressure 127/86 133/78 O2 Sat by Pulse 93 99 91 Oximetry 07/23/21 07/23/21 08:48 13:37 Temperature Pulse Rate Pulse Rate [ 60 72 Anterior Bilateral Throughout] Respiratory Rate Respiratory 18 20 Rate [Anterior Bilateral Throughout] Blood Pressure O2 Sat by Pulse 93 Oximetry Constitutional: no acute distress, alert Eyes: non-icteric ENT: oropharynx moist Neck: supple, no JVD Effort: mildly labored Ascultation: Bilateral: wheezes, other (prolonged expiratory phase) Percussion: Bilateral: not dull Cardiovascular: regular rate and rhythm Gastrointestinal: normoactive bowel sounds, soft, non-tender, non-distended Integumentary: normal Extremities: no cyanosis, no edema, pulses normal, no ischemia or petechiae Neurologic: normal mental status, non-focal exam, pupils equal and round, motor strength normal and Psychiatric: mood appropriate, affect normal CBC and BMP: 07/21/21 04:41 07/21/21 04:41 Abnormal lab findings: Abnormal Labs 07/20/21 07/20/21 07/20/21 13:57 13:57 13:57 WBC 12.8 H RBC 5.38 H Hct 47.9 H MCHC 31 L Lymph % (Auto) Eos % (Auto) 8.5 H Lymph # (Auto) Eos # (Auto) 1.1 H Seg Neutrophils % Sodium Carbon Dioxide 20 L Glucose 124 H POC Glucose Lactic Acid 2.20 H* 07/21/21 07/21/21 07/23/21 04:41 04:41 08:13 WBC RBC Hct MCHC Lymph % (Auto) 11.4 L Eos % (Auto) Lymph # (Auto) 0.9 L Eos # (Auto) Seg Neutrophils % 87.7 H Sodium 135 L Carbon Dioxide 20 L Glucose 196 H POC Glucose 139 H Lactic Acid Allied health notes reviewed: nursing (mild hypoventilation)
[2021-07-23] MEDS ORDERED: predniSONE 20 MG TAB PO SCH (16:00)
--- NOTE | 2021-07-23 18:23 | Discharge Summary ---
Providers - Providers Date of Admission: 07/20/21 16:17 Attending physician: PREETHI WATSON MD 07/20/21 23:35 Consult to Physician [CONS] Routine Comment: Consulting Provider: LADAN SHAW Physician Instructions: Reason For Exam: Acute respiratory failure with hypoxia Primary care physician: PICKER TENDER Hospitalization Condition: Stable Disposition: 01 HOME / SELF CARE / HOMELESS Exam - Constitutional Vitals: Temp Pulse Resp BP Pulse Ox 97.9 F 72 20 133/78 93 07/23/21 08:14 07/23/21 13:37 07/23/21 13:37 07/23/21 08:14 07/23/21 08:48 Plan Activity: advance as tolerated Diet: regular Special Instructions: smoking cessation Follow up with: PRIMARY CARE, [Primary Care Provider] - 3-5 Days Forms: AMA Form Prescriptions: Azithromycin 250 mg PO DAILY #5 tablet Prednisone [predniSONE 10 mg (6-Day Pack, 21 Tabs)] 10 mg PO .TAPER #1 tab.ds.pk Albuterol Mdi (or & Nicu Only) [ProAir HFA Inhaler] 2 puff IH QID PRN #1 inhalation PRN Reason: Shortness Of Breath
== END 2021-07-23 18:06 | disposition home or self-care (01) | DRG 189 ==
LOC: ED 12:45 → 4A 16:17
PROVIDERS: ADMIT Internal Medicine; ATTEND Internal Medicine
DX: J96.01 Acute respiratory failure with hypoxia (principal); J44.1 Chronic obstructive pulmonary disease with (acute) exacerbation; I10 Essential (primary) hypertension; J44.9 Chronic obstructive pulmonary disease, unspecified; F17.210 Nicotine dependence, cigarettes, uncomplicated; J01.90 Acute sinusitis, unspecified
CPT/HCPCS: 36415; 71045; 80048; 80053; 82140; 82550; 82553; 82962; 83036; 83615; 83880; 84484; 85025; 86140; 87040; 93005; 94640; 94644; 94760; G0378; J3490; J0696; J1170; J1644; J2405; J2920; J2930; J3475

== ENCOUNTER 2021-10-29 09:57 | Emergency (ER) | payer SELFPAY ==
[2021-10-29 10:23] VITALS: BP 120/80
[2021-10-29] MEDS ORDERED: IPRATROPIUM 0.02% NEBU 2.5 ML IH ONE (10:37)
[2021-10-29] MEDS ORDERED: ALBUTEROL 2.5 MG/3 ML NEBU IH ONE (10:37)
--- NOTE | 2021-10-29 10:39 | Emergency Department Report ---
ED Shortness of Breath HPI - General Chief Complaint: Dyspnea/Respdistress Stated Complaint: ANGEL Time Seen by Provider: 10/29/21 10:31 Source: patient Mode of arrival: Ambulatory Limitations: No Limitations - History of Present Illness Initial Comments: Patient presents secondary shortness of breath. He states over the last couple of weeks he has felt short of breath. Last night and today he developed some chest tightness. He states that it feels like somebody sitting on his chest. This is in the sternal area. This tightness does not radiate or migrate. It is worse with exertion. He also states that he cannot walk up a flight of stairs without having to stop and catch his breath. Patient states upon further questioning that he has had intermittent chest tightness throughout the last couple of weeks and he related to his difficulty breathing. He does have a history of chronic bronchitis. Patient states that he was trying not to come here because he does not have health insurance. He was worried about the bill. There is no history of recent travel or trauma. He has had no hemoptysis. There is no cough. He has no fevers. Patient does admit that he was in the hospital previously for 4 days and then checked himself out. He believes that that might not have been the smartest thing to do. - Related Data Previous Rx's Medication Instructions Recorded Last Taken Type Azithromycin 250 mg PO DAILY #5 tablet 07/23/21 Unknown Rx Albuterol Mdi (or & Nicu Only) 2 puff IH QID PRN #8.5 gram 10/29/21 Unknown Rx [ProAir HFA Inhaler] Prednisone [predniSONE 10 mg 10 mg PO .TAPER #1 tab.ds.pk 10/29/21 Unknown Rx (6-Day Pack, 21 Tabs)] Allergies Allergy/AdvReac Type Severity Reaction Status Date / Time No Known Allergies Allergy Verified 10/29/21 10:23 ED Review of Systems ROS: Stated complaint: ANGEL Other details as noted in HPI Comment: All other systems reviewed and negative Constitutional: denies: fever Eyes: denies: vision change ENT: denies: throat pain Respiratory: see HPI Cardiovascular: as per HPI Endocrine: denies: unexplained weight loss Gastrointestinal: denies: abdominal pain Genitourinary: denies: dysuria Musculoskeletal: denies: back pain Skin: denies: rash Neurological: denies: headache Hematological/Lymphatic: denies: easy bruising ED Past Medical Hx - Past Medical History Previous Medical History?: Yes Hx Hypertension: Yes Hx COPD: Yes (No home O2) Additional medical history: Bronchitis - Surgical History Past Surgical History?: Yes Additional Surgical History: right breast tissue removed 1990 - Family History Family history: hypertension - Social History Smoking Status: Current Every Day Smoker (We discussed tobacco cessation) - Medications Home Medications: Home Medications Medication Instructions Recorded Confirmed Last Taken Type Azithromycin 250 mg PO DAILY #5 tablet 07/23/21 Unknown Rx Albuterol Mdi (or & Nicu Only) 2 puff IH QID PRN #8.5 gram 10/29/21 Unknown Rx [ProAir HFA Inhaler] Prednisone [predniSONE 10 mg 10 mg PO .TAPER #1 tab.ds.pk 10/29/21 Unknown Rx (6-Day Pack, 21 Tabs)] ED Physical Exam - General Limitations: No Limitations, Other (Pulse ox noted and normal) General appearance: alert, in distress (Mild) - Head Head exam: Present: atraumatic, normocephalic - Eye Eye exam: Present: normal appearance, PERRL, EOMI. Absent: scleral icterus - ENT ENT exam: Present: normal orophraynx, normal external ear exam - Neck Neck exam: Present: normal inspection. Absent: meningismus - Respiratory Respiratory exam: Present: respiratory distress (Mild), wheezes (Bilateral) - Cardiovascular Cardiovascular Exam: Present: regular rate, normal rhythm. Absent: JVD - GI/Abdominal GI/Abdominal exam: Present: soft. Absent: tenderness - Extremities Exam Extremities exam: Present: normal capillary refill. Absent: pedal edema, calf tenderness - Back Exam Back exam: Absent: CVA tenderness (R), CVA tenderness (L) - Neurological Exam Neurological exam: Present: alert, oriented X3, CN II-XII intact, normal gait. Absent: motor sensory deficit - Psychiatric Psychiatric exam: Present: normal affect, normal mood - Skin Skin exam: Present: warm, dry ED Course Vital Signs 10/29/21 10/29/21 10:21 11:00 Temperature 97.7 F Pulse Rate 72 Pulse Rate [ 79 Anterior Bilateral Throughout] Respiratory 18 Rate Respiratory 20 Rate [Anterior Bilateral Throughout] Blood Pressure 120/80 O2 Sat by Pulse 97 Oximetry - Reevaluation(s) Reevaluation #1: 10/29/21 10:39 EKG and labs were ordered. X-ray was ordered. Continuous albuterol neb started. Old records reviewed. Reevaluation #2: 10/29/21 11:46 Labs and x-rays have been noted. Patient was subsequently discharged. ED Medical Decision Making - Lab Data Result diagrams: 10/29/21 10:42 10/29/21 10:42 - EKG Data -: EKG Interpreted by Me - EKG Data 10/29/21 12:05 1157-EKG shows normal sinus rhythm at 79. Intervals are normal including a QRS of 89 and a SD of 163. QT corrected of 512 is prolonged. Patient has generalized T wave flattening. There is T wave inversion in V3 through V6 as well as 3 and aVF. There was no ST elevation to suggest STEMI. - Radiology Data Radiology results: report reviewed - Medical Decision Making Patient presented with weeks of symptoms including shortness of breath and exertional dyspnea. He had reported orthopnea. He had reported chest pain recently. There was no evidence of STEMI or NSTEMI. He did not have evidence of pneumonia or congestive heart failure based on x-ray. There was no radiographic evidence of pneumothorax. He did not have a wide mediastinum suggestive of aortic dissection. There was no risk factor for pulmonary e mbolism. Patient was treated symptomatically and referred for outpatient evaluation. He certainly does not appear to be toxic. He was wheezing. After treatments, he felt much better. There was no evidence of hypoxic respiratory failure. He does not require admission. Critical Care Time: No Critical care attestation.: If time is entered above; I have spent that time in minutes in the direct care of this critically ill patient, excluding procedure time. ED Disposition Clinical Impression: Substernal chest pain, Exertional dyspnea, Wheezing Disposition: 01 HOME / SELF CARE / HOMELESS Is pt being admited?: No Condition: Stable Instructions: Shortness of Breath, Adult, [id number], Nonspecific Chest Pain, Adult Additional Instructions: Elevate the feet. Do not eat salt. Avoid cigarettes and cigarette smoking. Follow-up with your regular doctor or the referral doctor for recheck. Return for problems. Prescriptions: Prednisone [predniSONE 10 mg (6-Day Pack, 21 Tabs)] 10 mg PO .TAPER #1 tab.ds.pk Albuterol Mdi (or & Nicu Only) [ProAir HFA Inhaler] 2 puff IH QID PRN #8.5 gram PRN Reason: Shortness Of Breath Referrals: PRIMARY CARE, [Primary Care Provider] - 3-5 Days ZACK HECTOR MD [Staff Physician] - 3-5 Days
[2021-10-29 10:57] LABS: Hematocrit 39.9 % (35.5-45.6); Hemoglobin 13.2 gm/dl (11.8-15.2); Mean Corpuscular HGB Conc 33 % (32-34); Mean Corpuscular Volume 88 fl (84-94); Platelet Count 250 K/mm3 (140-440); Red Blood Count 4.54 M/mm3 (3.65-5.03); Red Cell Distribution Width 14.5 % (13.2-15.2)
--- NOTE | 2021-10-29 11:15 | XRay Report ---
CHEST 2 VIEWS INDICATION: Chest pain. COMPARISON: 07/20/2021 FINDINGS: Support devices: None. Heart: Within normal limits. Lungs/pleura: The lungs appear mildly hyperinflated versus good inspiration. Correlate for history of smoking. No evidence for acute infiltrate, pleural fluid or pneumothorax. No interstitial disease. Additional findings: None. IMPRESSION: No acute findings. Mild hyperinflation. Signer Name: Matt Coombs Jr, MD Signed: 10/29/2021 11:10 AM Workstation Name: [id number]
[2021-10-29 11:21] LABS: BUN/Creatinine Ratio 12; Blood Urea Nitrogen 13 mg/dL (9-20); Calcium 9.1 mg/dL (8.4-10.2); Hemolysis Index 39
--- NOTE | 2021-10-30 09:29 | Electrocardiograph Report ---
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
== END 2021-10-29 12:13 | disposition home or self-care (01) ==
LOC: ED 09:57
DX: R07.89 Other chest pain (principal); R06.2 Wheezing; I10 Essential (primary) hypertension; J44.9 Chronic obstructive pulmonary disease, unspecified; F17.200 Nicotine dependence, unspecified, uncomplicated; Z79.899 Other long term (current) drug therapy
CPT/HCPCS: 36415; 71046; 80048; 84484; 85027; 93005; 93010; 94640; 94644; 99284

== ENCOUNTER 2021-11-21 18:32 | Emergency (ER) | payer SELFPAY ==
[2021-11-21] MEDS ORDERED: IPRATROPIUM/ALBUTEROL SULFATE 3 ML AMPUL.NEB IH ONE (22:00)
[2021-11-21] MEDS ORDERED: predniSONE 20 MG TAB PO ONE (22:00)
--- NOTE | 2021-11-21 22:14 | Emergency Department Report ---
ED Shortness of Breath HPI - General Chief Complaint: Dyspnea/Respdistress Stated Complaint: ANGEL Time Seen by Provider: 11/21/21 21:47 Source: patient, old records reviewed (Previous admission for acute respiratory failure secondary to hypoxia) Mode of arrival: Ambulatory Limitations: No Limitations - History of Present Illness Initial Comments: 61-year-old male with a past medical history of COPD presents to the hospital pain by wheezing shortness of breath the last 3 to 4 days. Patient continues smoke cigarettes. He ran out of his albuterol and medications for nebulizer and does not currently have any medications for his symptoms. Denies cough, fever, calf tenderness, or leg edema. Patient does endorse some mild reproducible chest pain at one particular pinpoint area of the sternum. - Related Data Previous Rx's Medication Instructions Recorded Last Taken Type Azithromycin 250 mg PO DAILY #5 tablet 07/23/21 Unknown Rx ALBUTEROL NEB's [Proventil 0.083% 2.5 mg IH TID PRN #30 neb 11/21/21 Unknown Rx NEBS] Albuterol Mdi (or & Nicu Only) 2 puff IH QID PRN #8.5 gram 11/21/21 Unknown Rx [ProAir HFA Inhaler] Prednisone [predniSONE 10 mg 10 mg PO .TAPER #1 tab.ds.pk 11/21/21 Unknown Rx (6-Day Pack, 21 Tabs)] Allergies Allergy/AdvReac Type Severity Reaction Status Date / Time No Known Allergies Allergy Verified 10/29/21 10:23 ED Review of Systems ROS: Stated complaint: ANGEL Other details as noted in HPI Comment: All other systems reviewed and negative ED Past Medical Hx - Past Medical History Hx Hypertension: Yes Hx COPD: Yes (No home O2) Additional medical history: Bronchitis - Surgical History Additional Surgical History: right breast tissue removed 1990 - Social History Smoking Status: Current Every Day Smoker (We discussed tobacco cessation) - Medications Home Medications: Home Medications Medication Instructions Recorded Confirmed Last Taken Type Azithromycin 250 mg PO DAILY #5 tablet 07/23/21 Unknown Rx ALBUTEROL NEB's [Proventil 0.083% 2.5 mg IH TID PRN #30 neb 11/21/21 Unknown Rx NEBS] Albuterol Mdi (or & Nicu Only) 2 puff IH QID PRN #8.5 gram 11/21/21 Unknown Rx [ProAir HFA Inhaler] Prednisone [predniSONE 10 mg 10 mg PO .TAPER #1 tab.ds.pk 11/21/21 Unknown Rx (6-Day Pack, 21 Tabs)] ED Physical Exam - General Limitations: No Limitations - Other Other exam information: General: No acute distress Head: Atraumatic Eyes: normal appearance ENT: Moist mucous membranes Neck: Normal appearance, no midline tenderness Chest: Minimal wheeze, no tachypnea, no accessory muscle CV: Regular rate and rhythm Abdomen: Soft, normal bowel sounds, nontender, nondistended, no rebound or guarding Back: Normal inspection Extremity: Normal inspection, full range of motion, no calf tenderness or leg edema Neuro: Alert O x 3, no facial asymmetry, speech clear, no gross motor sensory deficit Psych: Appropriate behavior Skin: No rash ED Course Vital Signs 11/21/21 19:00 Temperature 99.2 F Pulse Rate 69 Respiratory 20 Rate Blood Pressure 149/94 [Right] O2 Sat by Pulse 97 Oximetry ED Medical Decision Making - Medical Decision Making 61-year-old male presents to the hospital mild COPD exacerbation and he has run out of his bronchodilators. Patient also continues to smoke cigarettes. Patient counseled on the importance of discontinuing cigarette smoke due to risk of worsening lung injury and oxygen dependence. Patient treated with bronchodilators and prednisone in the ED and will be discharged on same. Outpatient follow-up advised. There are no signs of hypoxia at this time Critical Care Time: No Critical care attestation.: If time is entered above; I have spent that time in minutes in the direct care of this critically ill patient, excluding procedure time. ED Disposition Clinical Impression: COPD with acute exacerbation, Smoker Disposition: 01 HOME / SELF CARE / HOMELESS Is pt being admited?: No Does the pt Need Aspirin: No Condition: Stable Instructions: Chronic Obstructive Pulmonary Disease (ED), Chronic Obstructive Pulmonary Disease, Steps to Quit Smoking Additional Instructions: Take the medication as prescribed. Follow-up with your doctor or doctor/clinic provided. Return if symptoms worsen as indicated by your discharge instructions. Prescriptions: Prednisone [predniSONE 10 mg (6-Day Pack, 21 Tabs)] 10 mg PO .TAPER #1 tab.ds.pk Albuterol Mdi (or & Nicu Only) [ProAir HFA Inhaler] 2 puff IH QID PRN #8.5 gram PRN Reason: Shortness Of Breath ALBUTEROL NEB's [Proventil 0.083% NEBS] 2.5 mg IH TID PRN #30 neb PRN Reason: Wheezing Referrals: ROSENDO LOPEZ MD [Staff Physician] - 3-5 Days (Lung specialist) ZACK HECTOR MD [Staff Physician] - 3-5 Days (Primary care doctor) [facility] [Provider Group] - 3-5 Days (Primary care clinic)
[2021-11-21 23:31] VITALS: BP 168/95
== END 2021-11-21 23:33 | disposition home or self-care (01) ==
LOC: ED 18:32
DX: J44.1 Chronic obstructive pulmonary disease with (acute) exacerbation (principal); F17.200 Nicotine dependence, unspecified, uncomplicated; I10 Essential (primary) hypertension; Z79.899 Other long term (current) drug therapy
CPT/HCPCS: 94640; 94644; 99282

== ENCOUNTER 2022-02-20 05:34 | Emergency (ER) | payer SELFPAY ==
[2022-02-20] MEDS ORDERED: IPRATROPIUM 0.02% NEBU 2.5 ML IH ONE ×2 (05:55)
[2022-02-20] MEDS ORDERED: ALBUTEROL 2.5 MG/3 ML NEBU IH ONE ×2 (05:55)
[2022-02-20] MEDS ORDERED: predniSONE 20 MG TAB PO ONE (06:29)
--- NOTE | 2022-02-20 06:59 | Emergency Department Report ---
ED Shortness of Breath HPI - General Chief Complaint: Dyspnea/Respdistress Stated Complaint: COPD/ANGEL Time Seen by Provider: 02/20/22 06:24 Source: patient, old records reviewed Mode of arrival: Ambulatory Limitations: No Limitations - History of Present Illness Initial Comments: 62-year-old male with a past medical history of COPD not on home oxygen and hypertension presents to the hospital complaining of wheezing and shortness of breath worsening x1 week. Once again patient presents to the hospital after running out of all his bronchodilators. He does not have a primary care doctor. He denies cough, fever, or calf tenderness. Patient complains of mild intermittent pedal edema. Room air saturation 90% upon ED arrival as per triage documentation. Patient continues to smoke - Related Data Previous Rx's Medication Instructions Recorded Last Taken Type Azithromycin 250 mg PO DAILY #5 tablet 07/23/21 Unknown Rx ALBUTEROL NEB's [Proventil 0.083% 2.5 mg IH TID PRN #30 neb 02/20/22 Unknown Rx NEBS] Albuterol Mdi (or & Nicu Only) 2 puff IH QID PRN #8.5 gram 02/20/22 Unknown Rx [ProAir HFA Inhaler] Prednisone [predniSONE 10 mg 10 mg PO .TAPER #1 tab.ds.pk 02/20/22 Unknown Rx (6-Day Pack, 21 Tabs)] Allergies Allergy/AdvReac Type Severity Reaction Status Date / Time No Known Allergies Allergy Verified 02/20/22 05:48 ED Review of Systems ROS: Stated complaint: COPD/ANGEL Other details as noted in HPI Comment: All other systems reviewed and negative ED Past Medical Hx - Past Medical History Previous Medical History?: Yes Hx Hypertension: Yes Hx COPD: Yes (No home O2) Additional medical history: Bronchitis - Surgical History Past Surgical History?: Yes Additional Surgical History: right breast tissue removed 1990 - Social History Smoking Status: Never Smoker Substance Use Type: None - Medications Home Medications: Home Medications Medication Instructions Recorded Confirmed Last Taken Type Azithromycin 250 mg PO DAILY #5 tablet 07/23/21 Unknown Rx ALBUTEROL NEB's [Proventil 0.083% 2.5 mg IH TID PRN #30 neb 02/20/22 Unknown Rx NEBS] Albuterol Mdi (or & Nicu Only) 2 puff IH QID PRN #8.5 gram 02/20/22 Unknown Rx [ProAir HFA Inhaler] Prednisone [predniSONE 10 mg 10 mg PO .TAPER #1 tab.ds.pk 02/20/22 Unknown Rx (6-Day Pack, 21 Tabs)] ED Physical Exam - General Limitations: No Limitations - Other Other exam information: General: No acute distress Head: Atraumatic Eyes: normal appearance ENT: Moist mucous membranes Neck: Normal appearance, no midline tenderness Chest: Diminished breath sounds bilaterally with out wheezing however, nebulizer treatment and prior, no tachypnea or accessory muscle CV: Regular rate and rhythm Abdomen: Soft, normal bowel sounds, nontender, nondistended, no rebound or guarding Back: Normal inspection Extremity: Normal inspection, full range of motion, no calf tenderness or leg Neuro: Alert O x 3, no facial asymmetry, speech clear, no gross motor sensory deficit Psych: Appropriate behavior Skin: No rash ED Course Vital Signs 02/20/22 02/20/22 02/20/22 05:44 06:05 07:01 Temperature 98.2 F Pulse Rate 64 Pulse Rate [ 64 Bilateral Throughout] Respiratory 16 Rate Respiratory 21 Rate [Bilateral Throughout] Blood Pressure 125/95 [Left] O2 Sat by Pulse 90 21 L Oximetry 02/20/22 07:27 Temperature Pulse Rate 84 Pulse Rate [ Bilateral Throughout] Respiratory 18 Rate Respiratory Rate [Bilateral Throughout] Blood Pressure 125/72 [Left] O2 Sat by Pulse 95 Oximetry - Reevaluation(s) Reevaluation #1: 02/20/22 10:19 pt feeling better, tolerating ambulation with sats 93-94% on room air ED Medical Decision Making - Radiology Data Radiology results: report reviewed CHEST 1 VIEW INDICATION / CLINICAL INFORMATION: sob, copd. COMPARISON: Chest x-ray 10/29/2021 FINDINGS: SUPPORT DEVICES: None. HEART / MEDIASTINUM: Heart size is within normal limits. Mediastinal contour demonstrates no significant abnormality. LUNGS / PLEURA: No significant pulmonary abnormality. BONES: No significant osseous abnormality. ADDITIONAL FINDINGS: No significant additional findings. IMPRESSION: 1. No active cardiopulmonary disease. Critical Care Time: No Critical care attestation.: If time is entered above; I have spent that time in minutes in the direct care of this critically ill patient, excluding procedure time. ED Disposition Clinical Impression: COPD with acute exacerbation Disposition: HOME / SELF CARE / HOMELESS Is pt being admited?: No Does the pt Need Aspirin: No Condition: Stable Instructions: Chronic Obstructive Pulmonary Disease (ED), Chronic Obstructive Pulmonary Disease, [id number] Additional Instructions: Take the medication as prescribed. Follow-up with your doctor or doctor/clinic provided. Return if symptoms worsen as indicated by your discharge instructions. Prescriptions: Prednisone [predniSONE 10 mg (6-Day Pack, 21 Tabs)] 10 mg PO .TAPER #1 tab.ds.pk Albuterol Mdi (or & Nicu Only) [ProAir HFA Inhaler] 2 puff IH QID PRN #8.5 gram PRN Reason: Shortness Of Breath ALBUTEROL NEB's [Proventil 0.083% NEBS] 2.5 mg IH TID PRN #30 neb PRN Reason: Wheezing Referrals: BRANDO CHIN MD [Staff Physician] - 3-5 Days [facility] [Provider Group] - 3-5 Days Time of Disposition: 10:30
--- NOTE | 2022-02-20 07:11 | XRay Report ---
CHEST 1 VIEW INDICATION / CLINICAL INFORMATION: sob, copd. COMPARISON: Chest x-ray 10/29/2021 FINDINGS: SUPPORT DEVICES: None. HEART / MEDIASTINUM: Heart size is within normal limits. Mediastinal contour demonstrates no signific ant abnormality. LUNGS / PLEURA: No significant pulmonary abnormality. BONES: No significant osseous abnormality. ADDITIONAL FINDINGS: No significant additional findings. IMPRESSION: 1. No active cardiopulmonary disease. Signer Name: Chandrakant Clark II, MD Signed: 02/20/2022 7:06 AM Workstation Name: [id number]
[2022-02-20 10:21] VITALS: BP 112/72
== END 2022-02-20 11:09 | disposition home or self-care (01) ==
LOC: ED 05:34
DX: J44.1 Chronic obstructive pulmonary disease with (acute) exacerbation (principal); I10 Essential (primary) hypertension; Z79.899 Other long term (current) drug therapy
CPT/HCPCS: 71045; 94640; 94644; 99283

== ENCOUNTER 2022-06-02 01:02 | Emergency (ER) | payer SELFPAY ==
--- NOTE | 2022-06-02 04:06 | XRay Report ---
CHEST 2 VIEWS INDICATION / CLINICAL INFORMATION: DIFFICULTY BREATHING. COMPARISON: 02/20/2022 FINDINGS: SUPPORT DEVICES: None. HEART / MEDIASTINUM: No significant abnormality. LUNGS / PLEURA: No significant pulmonary or pleural abnormality. No pneumothorax. ADDITIONAL FINDINGS: None IMPRESSION: 1. No acute chest process. Signer Name: Freeman Rosado MD Signed: 06/02/2022 4:02 AM Workstation Name: [id number]
[2022-06-02] MEDS ORDERED: IPRATROPIUM 0.02% NEBU 2.5 ML IH ONE (05:47)
[2022-06-02] MEDS ORDERED: ALBUTEROL 2.5 MG/3 ML NEBU IH ONE ×2 (05:47→08:25)
[2022-06-02] MEDS ORDERED: methylPREDNISolone Sod Succinate 125 MG/2 ML INJ IV ONE (05:47)
[2022-06-02 06:48] LABS: Basophils % (Auto) 0.5 % (0.0-1.8); Eosinophils # (Auto) 0.8 K/mm3 (0.0-0.4); Eosinophils % (Auto) 11.3 % (0.0-4.3); Hemoglobin 13.6 gm/dl (11.8-15.2); Lymphocytes % (Auto) 44.4 % (13.4-35.0); Mean Corpuscular HGB Conc 32 % (32-34); Mean Corpuscular Volume 89 fl (84-94); Monocytes # (Auto) 0.5 K/mm3 (0.0-0.8); Monocytes % (Auto) 7.1 % (0.0-7.3); Platelet Count 208 K/mm3 (140-440); Red Blood Count 4.72 M/mm3 (3.65-5.03)
[2022-06-02 06:58] LABS: Creatine Kinase MB 1.8 ng/mL (0.0-4.0)
--- NOTE | 2022-06-02 06:58 | Emergency Department Report ---
ED Shortness of Breath HPI - General Chief Complaint: Dyspnea/Respdistress Stated Complaint: DIFFICULTY BREATHING Time Seen by Provider: 06/02/22 06:34 Source: patient Mode of arrival: Ambulatory Limitations: No Limitations - History of Present Illness Initial Comments: 62-year-old -Nepalese male with a history of COPD, smoker, complains of increased shortness of breath and wheezing patient said he went to sleep and realize he was short of breath coughing and wheezing. Denies having fever chills or chest pain MD Complaint: shortness of breath, cough -: Gradual Severity: moderate Consistency: intermittent Known History Of: COPD Associated Symptoms: cough, orhopnia Treatments Prior to Arrival: none - Related Data Previous Rx's Medication Instructions Recorded Last Taken Type Azithromycin 250 mg PO DAILY #5 tablet 07/23/21 Unknown Rx ALBUTEROL NEB's [Proventil 0.083% 2.5 mg IH TID PRN #30 neb 06/02/22 Unknown Rx NEBS] Albuterol Mdi (or & Nicu Only) 2 puff IH QID PRN #8.5 gram 06/02/22 Unknown Rx [ProAir HFA Inhaler] Prednisone [predniSONE 10 mg 10 mg PO .TAPER #1 tab.ds.pk 06/02/22 Unknown Rx (6-Day Pack, 21 Tabs)] Allergies Allergy/AdvReac Type Severity Reaction Status Date / Time No Known Allergies Allergy Verified 02/20/22 05:48 ED Review of Systems ROS: Stated complaint: DIFFICULTY BREATHING Other details as noted in HPI ED Past Medical Hx - Past Medical History Previous Medical History?: Yes Hx Hypertension: Yes Hx COPD: Yes (No home O2) Additional medical history: Bronchitis - Surgical History Past Surgical History?: Yes Additional Surgical History: right breast tissue removed 1990 - Social History Smoking Status: Current Every Day Smoker Substance Use Type: Alcohol, Heroin - Medications Home Medications: Home Medications Medication Instructions Recorded Confirmed Last Taken Type Azithromycin 250 mg PO DAILY #5 tablet 07/23/21 Unknown Rx ALBUTEROL NEB's [Proventil 0.083% 2.5 mg IH TID PRN #30 neb 06/02/22 Unknown Rx NEBS] Albuterol Mdi (or & Nicu Only) 2 puff IH QID PRN #8.5 gram 06/02/22 Unknown Rx [ProAir HFA Inhaler] Prednisone [predniSONE 10 mg 10 mg PO .TAPER #1 tab.ds.pk 06/02/22 Unknown Rx (6-Day Pack, 21 Tabs)] ED Physical Exam - General Limitations: No Limitations General appearance: alert, in no apparent distress - Head Head exam: Present: atraumatic, normocephalic - Eye Eye exam: Present: normal appearance, PERRL - ENT ENT exam: Present: mucous membranes moist - Neck Neck exam: Present: normal inspection - Respiratory Respiratory exam: Present: wheezes, rhonchi. Absent: respiratory distress - Cardiovascular Cardiovascular Exam: Present: regular rate, normal rhythm. Absent: systolic murmur, diastolic murmur, rubs, gallop - GI/Abdominal GI/Abdominal exam: Present: soft, normal bowel sounds. Absent: distended, tenderness, guarding - Rectal Rectal exam: Present: deferred - Extremities Exam Extremities exam: Present: normal inspection, full ROM, normal capillary refill. Absent: pedal edema - Back Exam Back exam: Present: normal inspection, full ROM. Absent: tenderness - Neurological Exam Neurological exam: Present: alert, oriented X3 - Psychiatric Psychiatric exam: Present: normal affect, normal mood - Skin Skin exam: Present: warm, dry, intact, normal color. Absent: rash ED Course Vital Signs 06/02/22 06/02/22 06/02/22 01:03 05:41 06:36 Temperature 98.9 F Pulse Rate 84 79 Pulse Rate [ 61 Anterior Bilateral Throughout] Pulse Rate [ 70 Posterior Bilateral Throughout] Respiratory 18 15 Rate Respiratory 22 Rate [Anterior Bilateral Throughout] Respiratory 20 Rate [Posterior Bilateral Throughout] Blood Pressure 155/106 Blood Pressure 142/109 [Left] O2 Sat by Pulse 96 95 Oximetry ED Medical Decision Making - Lab Data Result diagrams: 06/02/22 05:59 06/02/22 05:59 Critical care attestation.: If time is entered above; I have spent that time in minutes in the direct care of this critically ill patient, excluding procedure time. ED Disposition Clinical Impression: COPD exacerbation Disposition: 01 HOME / SELF CARE / HOMELESS Is pt being admited?: No Does the pt Need Aspirin: No Condition: Stable Instructions: Chronic Obstructive Pulmonary Disease (ED), Chronic Obstructive Pulmonary Disease, Chronic Obstructive Pulmonary Disease Exacerbation Prescriptions: Prednisone [predniSONE 10 mg (6-Day Pack, 21 Tabs)] 10 mg PO .TAPER #1 tab.ds.pk Albuterol i (or & Nicu Only) [ProAir HFA Inhaler] 2 puff IH QID PRN #8.5 gram PRN Reason: Shortness Of Breath ALBUTEROL NEB's [Proventil 0.083% NEBS] 2.5 mg IH TID PRN #30 neb PRN Reason: Wheezing
[2022-06-02 07:01] LABS: Alanine Aminotransferase 21 units/L (7-56); Albumin 4.7 g/dL (3.9-5); BUN/Creatinine Ratio 8; Blood Urea Nitrogen 10 mg/dL (9-20); Calcium 9.4 mg/dL (8.4-10.2); Hemolysis Index 11
[2022-06-02 09:18] VITALS: BP 133/75
--- NOTE | 2022-06-03 11:53 | Electrocardiograph Report ---
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
== END 2022-06-02 09:18 | disposition home or self-care (01) ==
LOC: ED 01:02
DX: J44.9 Chronic obstructive pulmonary disease, unspecified (principal); J45.901 Unspecified asthma with (acute) exacerbation; F17.200 Nicotine dependence, unspecified, uncomplicated; F10.20 Alcohol dependence, uncomplicated; I10 Essential (primary) hypertension
CPT/HCPCS: 36415; 71046; 80053; 82550; 82553; 83690; 84484; 85025; 93005; 94640; 99284; J2930; 94644